=== PATIENT | female | born 1940 | race Two or more races ===

== ENCOUNTER 2016-11-23 12:56 | Inpatient (IN) | payer MEDICARE, BC ==
[~2016-11-23 12:56] MED LIST: /ESOM40CA OR; /WARF3TA PO; ALLO100T PO; ALLO15TA PO; ALLOPOW4 XX; BENA25CA2 PO; CALC1CAP31 PO; CARD120T3 OR; CIPR-250 PO; COLA50CA3 PO; DEMA20TA PO; GABA-282 PO; K-TA10TA PO; LOPR50TA OR; METO100T PO; METR1TAB66 PO; OMEP40CA2 PO; PACE400T PO; POTA10TA16 PO; PRED20TA OR; ROCA0.5C PO; RYTH150T OR; TORS20TA2 PO; TYLE325T5 PO; ZYRT10CA PO; [UNRECOGNIZED DRUG - OTHER] PO; pradaxa OR
--- NOTE | 2016-11-23 14:15 | REP ---
CT Head without contrast HISTORY: Infarction COMPARISON: None Areas of decreased attenuation are present in the periventricular white matter. This represents small-vessel ischemic disease. There is no intraparenchymal hemorrhage, acute infarct, mass or midline shift. The ventricular system and cortical sulci as well as subarachnoid space in the posterior fossa are dilated consistent with mild volume loss. There is no extra cerebral collection. There is no fracture. The visualized sinuses are clear. IMPRESSION: 1. Small vessel ischemic disease. 2. Mild volume loss. Signed by Narciso Virgen MD 11/23/2016 02:06 P
--- NOTE | 2016-11-23 14:24 | REP ---
CT CERVICAL SPINE WITHOUT CONTRAST: HISTORY: Fall. There is no acute fracture or subluxation. Disc bulges are present at the C2-3 and C3-4 levels. Disc bulges with associated osteophyte formation are present at the C4-5 through C6-7 levels. There is minimal narrowing of the spinal canal. Uncinate process and/or facet hypertrophy are present at the C2-3 through C7-T1 levels. These findings produce minimal to moderate narrowing of the neural foramina. The C3-4 through C6-7 intervertebral discs are decreased in height consistent with disc degeneration. IMPRESSION: 1. There is no acute fracture or subluxation. 2. There is cervical spondylosis at the C2-3 through C7-T1 levels. Signed by Narciso Virgen MD 11/23/2016 02:29 P
--- NOTE | 2016-11-23 14:25 | REP ---
Chest one-view HISTORY: Infarction Comparison: 12/03/2014 The lungs are clear. The cardiac silhouette is enlarged. The pulmonary vasculature is normal in appearance. A cardiac pacemaker is present. Impression: No acute disease. Signed by Narciso Virgen MD 11/23/2016 02:17 P
[2016-11-23] MEDS ORDERED: GABA-282 PO (14:30)
[2016-11-23] MEDS ORDERED: TRAM50TA2 PO (14:30)
[2016-11-23] MEDS ORDERED: TORS20TA2 PO (14:30)
[2016-11-23] MEDS ORDERED: CALC1CAP31 PO (14:30)
[2016-11-23] MEDS ORDERED: METO25TA4 PO (14:30)
[2016-11-23] MEDS ORDERED: AMIO200T PO (14:30)
[2016-11-23] MEDS ORDERED: XARE15TA PO (14:30)
[2016-11-23] MEDS ORDERED: DIPH25CA PO (14:30)
[2016-11-23] MEDS ORDERED: FAMO40TA3 PO (14:30)
[2016-11-23] MEDS ORDERED: ZYLO300T4 PO (14:30)
[2016-11-23] MEDS ORDERED: POTA10CA PO (14:30)
[2016-11-23] MEDS ORDERED: ATOR1TAB21 PO (14:30)
[2016-11-23 14:31] LABS: INR 1.6
[2016-11-23] MEDS ORDERED: ONDA4TAB6 PO (14:31)
[2016-11-23 14:40] LABS: BASO % 0.7 % (0.0-1.0); EOS # 0.2 K/mm3 (0.0-0.50); EOS % 2.2 % (0.0-3.0); LARGE UNSTAINED CELL # 0.3 K/mm3 (0.0-0.4); LARGE UNSTAINED CELL % 3.8 % (0.0-4.0); LYMPH # 1.5 K/mm3 (1.5-4.5); LYMPH % 20.1 % (24.0-44.0); MEAN CORPUSCULAR HEMOGLOBIN 33.4 pg (27.0-33.0); MEAN CORPUSCULAR VOLUME 104.6 fl (80.0-96.0); MONO # 0.5 K/mm3 (0.0-0.8); MONO % 6.3 % (0.0-5.0); PLATELET COUNT, AUTOMATED 197 k/mm3 (150-450); RED CELL DISTRIBUTION WIDTH 16.2 % (11.5-14.5); WHITE BLOOD COUNT 7.4 K/mm3 (4.0-10.0)
[2016-11-23 14:58] LABS: ALBUMIN 3.2 GM/DL (3.2-5.2); ALBUMIN/GLOBULIN RATIO 1.03 (1.00-1.93); BILIRUBIN,DIRECT 0.3 MG/DL (0.0-0.2); BILIRUBIN,TOTAL 0.8 MG/DL (0.2-1.0); CALCIUM LEVEL 8.1 MG/DL (8.8-10.2); CREATININE FOR GFR 3.73 MG/DL (0.55-1.02); FREE T4 1.49 NG/DL (0.76-1.46); GLOMERULAR FILTRATION RATE 12.5 (>39); POTASSIUM SERUM 4.7 MEQ/L (3.5-5.1); TOTAL PROTEIN 6.3 GM/DL (6.4-8.2)
[2016-11-23] MEDS ORDERED: NS 1,000 ML IV ONE (15:15)
[2016-11-23] MEDS ORDERED: ACETAMINOPHEN 650 MG SUPP PR PRN (16:45)
[2016-11-23] MEDS ORDERED: ONDANSETRON 4MG/2ML VIAL (J2405) IV PRN (16:45)
[2016-11-23] MEDS ORDERED: NS 1,000 ML IV SCH (17:00)
[2016-11-23 19:00] VITALS: BP 157/67
--- NOTE | 2016-11-23 19:11 | HPEPDOC ---
Medical History and Physical Date of Admission Nov 23, 2016 at 16:39 History and Physical HISTORY AND PHYSICAL Date of admission: 11/23/2016 PCP: Not local Chief complaint: Not talking or moving HPI: 76-year-old female with hypertension, GERD, A. fib, gout, hyperlipidemia, morbid obesity status post gastric bypass in 2010, A. fib, chronic kidney disease stage IV who is brought in by her family for her not being able to talk or move. The patient was vacationing up here with her and adult daughters, and has not been feeling well since Friday. On Friday, she had nausea and vomiting, and even fell. However, her states that he immediately caught her, and he denies any injury and is confident that she did not hit her head. On Friday and Friday she continued to have episodes of vomiting and even went to the emergency department down in [place] on Friday. At the time, the family states that she was alert and interactive, and walking with her walker, which is baseline. She received IV fluids and Zofran in the emergency department, and was discharged home. The family states that she has had episodes this week where she sleeps for almost 16 hours a day. They also report that sometimes after she vomits, she will seem very "out of it " for several hours and has even had episodes of forgetting things. On Friday, they state that she seemed like her normal self and was able to eat and acted okay. She went to bed last night, but when she woke up at 7 AM this morning, they noticed that she couldn't really talk or move. The let her go back to sleep, but they awoke her several hours later, and when she was no better, they then drove her into the emergency department. The states that last night, he did notice her rolling over and moving around, but when he said something to her about her having difficulty sleeping, she did not verbally reply. The daughters report that this morning she had evidently had an episode of bowel incontinence, but she has no prior history of seizure, and she did not have any witnessed seizure-like activity. The patient herself is unable to participate in this interview, so this documentation is derived from interview with the and daughters, as well as the prior medical record. Past medical history: Hypertension, GERD, A. fib, gout, hyperlipidemia, morbid obesity status post gastric bypass in 2010, A. yaniv, chronic kidney disease stage IV Past surgical history: Gastric bypass, pacemaker, cholecystectomy, back surgery Family history: Diabetes mellitus, coronary artery disease, CVA Social history: The patient resides with her . She is currently vacationing up here. She quit smoking tobacco approximately 40-50 years ago, and is not known to use any drugs or alcohol. Allergies: No known drug allergies Review of systems: The patient is unable to participate in a complete review of symptoms, however, her family is able to tell me that in the last week she has had nausea, vomiting , fatigue, and episodes where she appears "out of it" Home meds: See below Physical exam: Vital signs: Vital Sign - Last 24 Hours 11/23/16 11/23/16 11/23/16 11/23/16 13:15 13:56 14:00 14:15 Pulse 66 59 60 Resp 16 B/P (MAP) 145/66 (92) 154/62 (92) 151/65 (93) 173/72 (105) Pulse Ox 99 99 96 11/23/16 11/23/16 11/23/16 11/23/16 14:23 14:30 14:45 15:00 Temp 97.0 Pulse 59 59 60 B/P (MAP) 156/68 (97) 125/61 (82) 112/47 (68) Pulse Ox 97 96 97 11/23/16 11/23/16 11/23/16 11/23/16 15:15 15:30 15:45 16:00 Pulse 60 60 59 60 B/P (MAP) 105/55 (72) 108/58 (75) 123/61 (81) 134/62 (86) Pulse Ox 97 97 97 98 11/23/16 11/23/16 11/23/16 11/23/16 16:15 16:30 16:45 17:00 Pulse 59 60 59 59 B/P (MAP) 147/66 (93) 150/66 (94) 151/65 (93) 124/58 (80) Pulse Ox 99 98 98 96 11/23/16 11/23/16 11/23/16 11/23/16 17:15 17:30 17:45 18:00 Pulse 59 59 59 59 B/P (MAP) 123/58 (79) 117/56 (76) 125/57 (79) 145/63 (90) Pulse Ox 97 96 98 98 11/23/16 11/23/16 11/23/16 18:15 18:30 18:45 Pulse 60 59 59 B/P (MAP) 149/61 (90) 149/67 (94) 144/63 (90) Pulse Ox 97 98 98 Gen.: no acute distress, lying in bed, appears to be sleeping but opens eyes to verbal stimulus of name Eyes: Extraocular movements intact, normal sclera ENT: Moist mucous membranes Cardiovascular: RRR, no murmurs rubs or gallops Lungs: clear to auscultation bilaterally, no rales, rhonchi, or wheeze Abdomen: Soft, NT/ND, normal BS Musculoskeletal: patient is not able to hold limbs against gravity; when I lift them, they fall back to the bed Extremities: No peripheral edema Neuro: alert and oriented to name, able to follow command to stick out her tongue but not to squeeze my hand; when I ask her to move each extremity, she is able to wiggle the distal end but no other movement, withdraws to pain in all extremities and even verbalizes "ow" Psych: tearful at times Labs and radiology: See below Sodium 149 BUN 63, creatinine 3.73 Lactate 2.5 Ammonia 113 Alkaline phosphatase 156 Troponin negative TSH and free T4 unremarkable EKG shows a paced rhythm CT of the head and CT of the cervical spine show only spondylosis at C2-3 and C7 -T1 Chest x-ray and treated for acute findings Wet read of the CT of the abdomen and pelvis showed no acute findings but did notice bilateral renal stones and diverticulosis, final read pending Assessment and plan: 76-year-old female with hypertension, GERD, A. fib, gout, hyperlipidemia, morbid obesity status post gastric bypass in 2010, A. fib, chronic kidney disease stage IV who is brought in by her family for her not being able to talk or move. 1. Encephalopathy: At this time, etiology is unclear, but there is certainly concern for acute CVA. The patient has no lateralizing symptoms, but she is hardly talking at all. CT of the head is unremarkable, but we will order MRI and MRA of the head and neck. We will monitor her in the ICU with neuro checks, telemetry, and we'll also order an echocardiogram. At this time, I am concerned that she is not safe to swallow, so she will be nothing by mouth with gentle IV fluids and we will get PT, OT and speech therapy for her. We will also check an EEG to rule out seizure. There may also be a component of metabolic encephalopathy, as the patient does appear to have a mild acute on chronic kidney disease, as well as some hypernatremia. There is no evidence of infection at this time as the patient is afebrile with a normal white count, but we will check blood and urine cultures. An initial troponin is also negative and her EKG is paced, but we will continue to trend troponins. Pending results of this workup, and clinical course, the patient may benefit from a neurology consult in the near future. 2. Hypernatremia: The patient's sodium is 149. I suspect that this is hypovolemic in nature as the patient has been having vomiting for the past week. We will hydrate her gently with D5 half-normal and follow serial sodiums. 3. Acute on chronic kidney disease stage IV: Family states that her GFR at baseline is right around 15, and they note that her creatinine in the emergency department on Friday was 3.3, however, they're unsure of her baseline creatinine. At this time, her BUN is 63 and her creatinine is 3.7. We will hydrate her gently and monitor her BUN and creatinine. Holding home torsemide and also hold home Rocaltrol as patient is nothing by mouth. 4. Hypertension: Hold home beta amari while patient is nothing by mouth. 5. GERD: Hold home H2 amari while patient is nothing by mouth. 6. A. fib: The patient is currently paced. We'll be holding her home amiodarone , beta amari, and Xarelto while she is nothing by mouth. 7. Gout: Hold home allopurinol while nothing by mouth. 8. Hyperlipidemia: Hold home statin while nothing by mouth. DVT prophylaxis: Heparin Dispo: admit as an inpatient to the ICU on the service of Dr. Eliza Jernigan CODE STATUS: The daughters tell me that they are her legal healthcare proxies. Both the daughters and the feel pretty confident that she had previously signed a DNR/DNI. At this time, they believe that she should be DNR/ DNI in an effort to honor her wishes. They also told me that they would be getting in contact with the daughter's , who is at home, and should be able to produce a copy of the legal healthcare proxy, as well as a copy of the patient's DNR/DNI. Vital Signs Vital Signs Date Time Temp Pulse Resp B/P (MAP) Pulse Ox O2 Delivery O2 Flow Rate FiO2 11/23/16 18:45 59 144/63 (90) 98 11/23/16 14:23 97.0 11/23/16 13:15 16 Laboratory Data Labs 24H Laboratory Tests 2 11/23/16 13:40: White Blood Count 7.4, Red Blood Count 4.07, Hemoglobin 13.6, Hematocrit 42.6, Mean Corpuscular Volume 104.6H, Mean Corpuscular Hemoglobin 33.4H, Mean Corpuscular Hemoglobin Concent 32.0, Red Cell Distribution Width 16.2H, Platelet Count 197, Neutrophils (%) (Auto) 67.0H, Lymphocytes (%) (Auto) 20.1L, Monocytes (%) (Auto) 6.3H, Eosinophils (%) (Auto) 2.2, Basophils (%) (Auto) 0.7 , Neutrophils # (Auto) 5.0, Lymphocytes # (Auto) 1.5, Monocytes # (Auto) 0.5, Eosinophils # (Auto) 0.2, Basophils # (Auto) 0.0, Large Unclassified Cells % 3.8 , Large Unclassified Cells # 0.3, Prothrombin Time 19.5H, Prothromb Time International Ratio 1.60, Activated Partial Thromboplast Time 36.5, Anion Gap 14 , Glomerular Filtration Rate 12.5L, Calcium Level 8.1L, Aspartate Amino Transf ( AST/SGOT) 29, Alanine Aminotransferase (ALT/SGPT) 38, Alkaline Phosphatase 156H , Total Bilirubin 0.8, Direct Bilirubin 0.3H, Total Creatine Kinase 38, Creatine Kinase MB 1.9, Creatine Kinase MB Relative Index 5.00H, Troponin I 0.02 , Total Protein 6.3L, Albumin 3.2, Albumin/Globulin Ratio 1.03, Amylase Level 38 , Lipase 235, Thyroid Stimulating Hormone (TSH) 1.480, Free Thyroxine 1.49H 11/23/16 13:41: Lactic Acid Level 2.5*H, Ammonia 113H 11/23/16 13:46: Bedside Glucose (Misc Panel) 122H 11/23/16 18:55: CBC/BMP Laboratory Tests 11/23/16 13:40 Red Blood Count 4.07, Mean Corpuscular Volume 104.6 H, Mean Corpuscular Hemoglobin 33.4 H, Mean Corpuscular Hemoglobin Concent 32.0, Red Cell Distribution Width 16.2 H, Neutrophils (%) (Auto) 67.0 H, Lymphocytes (%) (Auto ) 20.1 L, Monocytes (%) (Auto) 6.3 H, Eosinophils (%) (Auto) 2.2, Basophils (%) (Auto) 0.7, Neutrophils # (Auto) 5.0, Lymphocytes # (Auto) 1.5, Monocytes # ( Auto) 0.5, Eosinophils # (Auto) 0.2, Basophils # (Auto) 0.0 11/23/16 17:51 Microbiology Microbiology 11/23/16 Blood Culture, Received Pending 11/23/16 Blood Culture, Received Pending Home Medications Scheduled Allopurinol (Zyloprim) 300 Mg Tab, 300 MG PO DAILY Amiodarone HCl (Amiodarone HCl) 200 Mg Tab, 200 MG PO DAILY Atorvastatin Calcium (Atorvastatin Calcium) 20 Mg Tab, 20 MG PO DAILY Calcitriol (Calcitriol) 0.25 Mcg Cap, 0.25 MCG PO DAILY Famotidine (Famotidine) 40 Mg Tab, 40 MG PO DAILY Gabapentin (Gabapentin) 300 Mg Cap, 300 MG PO TID Metoprolol Tartrate (Metoprolol Tartrate) 25 Mg Tab, 25 MG PO BID Potassium Chloride (Klor-Con M10) 10 Meq Tabcr, 10 MEQ PO DAILY Rivaroxaban (Xarelto) 15 Mg Tab, 15 MG PO QPM Torsemide (Torsemide) 20 Mg Tab, 20 MG PO DAILY Scheduled PRN Diphenhydramine HCl (Diphenhydramine HCl) 25 Mg Cap, 25 MG PO Q12H PRN for ITCHING Ondansetron (Ondansetron Odt) 4 Mg Tab, 4 MG PO Q8H PRN for NAUSEA OR VOMITING Tramadol HCl (Tramadol HCl) 50 Mg Tab, 50 MG PO Q8H PRN for PAIN Allergies Coded Allergies: No Known Drug Allergy (Verified Allergy, Unknown, 12/04/14) JOAQUIM SOUSA Nov 23, 2016 19:11
[2016-11-23] MEDS ORDERED: D5W/0.45% SODIUM CHLORIDE 1,000 ML IV SCH (19:15)
[2016-11-23 20:00] VITALS: BP 156/69
[2016-11-23] MEDS: HEPARIN SOD (PORCINE) 5000 UNITS/ML VIAL SQ SCH (20:07)
[2016-11-23 22:00] VITALS: BP 104/47
[2016-11-24] VITALS (8 sets, daily range): BP systolic 103–156; BP diastolic 50–70
[2016-11-24 05:23] LABS: BASO % 0.6 % (0.0-1.0); EOS # 0.2 K/mm3 (0.0-0.50); EOS % 2.8 % (0.0-3.0); LARGE UNSTAINED CELL # 0.3 K/mm3 (0.0-0.4); LARGE UNSTAINED CELL % 4.3 % (0.0-4.0); LYMPH # 2.6 K/mm3 (1.5-4.5); MEAN CORPUSCULAR HEMOGLOBIN 33.4 pg (27.0-33.0); MEAN CORPUSCULAR HGB CONC 31.6 g/dl (32.0-36.5); MEAN CORPUSCULAR VOLUME 105.5 fl (80.0-96.0); MONO # 0.5 K/mm3 (0.0-0.8); MONO % 8.4 % (0.0-5.0); NEUTROPHILS # 2.8 K/mm3 (1.8-7.7); NEUTROPHILS % 45.9 % (36.0-66.0); PLATELET COUNT, AUTOMATED 176 k/mm3 (150-450); RED CELL DISTRIBUTION WIDTH 16.9 % (11.5-14.5); WHITE BLOOD COUNT 6.1 K/mm3 (4.0-10.0)
[2016-11-24 05:24] LABS: ADD MORPHOLOGY? YES; INR 1.27
[2016-11-24 05:47] LABS: ALBUMIN 2.5 GM/DL (3.2-5.2); ALBUMIN/GLOBULIN RATIO 0.96 (1.00-1.93); BILIRUBIN,TOTAL 0.8 MG/DL (0.2-1.0); CALCIUM LEVEL 7.8 MG/DL (8.8-10.2); CREATININE FOR GFR 3.2 MG/DL (0.55-1.02); MAGNESIUM LEVEL 2.2 MG/DL (1.8-2.4); POTASSIUM SERUM 4.1 MEQ/L (3.5-5.1); TOTAL PROTEIN 5.1 GM/DL (6.4-8.2)
[2016-11-24 06:28] LABS: ANISOCYTOSIS 1+
--- NOTE | 2016-11-24 07:32 | REP ---
CT ABDOMEN AND PELVIS WITHOUT CONTRAST: HISTORY: Fall. COMPARISON: 12/03/2014. The patient is status post cholecystectomy and stomach banding. Calcifications are present in the kidneys consistent with nephrolithiasis. Bilateral renal cysts are present. The largest on the right measures 8 cm. The largest on the left measures 5.2 cm. There is no hydronephrosis. The liver, pancreas, spleen and adrenal glands are normal in appearance. Prominent vessels are present adjacent to the spleen. There is no mass, adenopathy or free fluid. The visualized lungs are clear. The urinary bladder and uterus are normal in appearance. Diverticula are present in the descending and sigmoid colon. Degenerative change is present in the spine. IMPRESSION: 1. The patient is status post cholecystectomy and stomach banding. 2. Bilateral nephrolithiasis. 3. Bilateral renal cysts. 4. Diverticulosis. Signed by Narciso Virgen MD 11/24/2016 08:59 A
[2016-11-24] MEDS: D5W 1,000 ML IV SCH (08:17)
[2016-11-24] MEDS: HEPARIN SOD (PORCINE) 5000 UNITS/ML VIAL SQ SCH (08:17)
--- NOTE | 2016-11-24 08:36 | ECGEPIP ---
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
[2016-11-24] MEDS: METOPROLOL TART 25 MG TABLET PO SCH ×2 (09:00→20:47)
[2016-11-24] MEDS: cefTRIAXone SOD 1 GM in D5W MINI-BAG PLUS 50 ML IV SCH (09:16)
--- NOTE | 2016-11-24 10:13 | IPNPDOC ---
Subjective Date Seen The patient was seen on 11/24/16. Subjective Chief Complaint/HPI The patient is a 76-year-old female admitted with a reason for visit of AMS. Events since last encounter awake and alert this morning , knows her name , date or , where she is the name of the hospital can now give history about whats been going on at home. no fever or chills, feels weak , no chest pain or sob , no cough or phlegm , no diarrhea, did have few episodes of vomiting over the week, no dysuria or frequency of urination. Objective Physical Examination General Exam: Positive: Alert, Cooperative, No Acute Distress Eye Exam: Positive: PERRLA, Conjunctiva & lids normal, EOMI, Negative: Sclera icteric ENT Exam: Positive: Atraumatic, Mucous membr. moist/pink, Pharynx Normal Neck Exam: Positive: Supple, Negative: JVD, thyromegaly Chest Exam: Positive: Clear to auscultation, Normal air movement Heart Exam: Positive: Rate Normal, Regular Rhythm, Normal S1, Normal S2, Negative: Murmurs, Rubs Telemetry: Positive: No significant arrhythmia Abdomen Exam: Positive: Normal bowel sounds, Soft, Negative: Tenderness, Hepatospenomegaly Extremity Exam: Positive: Normal pulses, Negative: Clubbing, Cyanosis, Edema Assessment /Plan Problems (1) UTI (urinary tract infection) Status: Acute Problem Text: will start on ceftriaxone , await urine culture. (2) Acute metabolic encephalopathy Status: Acute Response to Treatment: Improving Problem Text: due to urinary tract infection clearing up (3) Hypernatremia Status: Acute Problem Text: due to poor intake , being on diuratics and vomiting deficit in free water will continue Dex iv. (4) CKD (chronic kidney disease), stage IV Status: Chronic (5) A-fib Status: Chronic Problem Text: will restart amiodarone, eliquis and metoprolol. (6) GERD (gastroesophageal reflux disease) Status: Chronic (7) Gout Status: Chronic (8) Hypertension Status: Chronic Problem Text: Now bp lowish . will get echo (9) Hyperlipidemia Status: Chronic (10) Pacemaker Status: Chronic Plan/VTE VTE Prophylaxis Ordered?: Yes VS, I&O, 24H, Fishbone Vital Signs/I&O Vital Signs Date Time Temp Pulse Resp B/P (MAP) Pulse Ox O2 Delivery O2 Flow Rate FiO2 11/24/16 06:00 60 111/53 (72) 87 Room Air 11/24/16 04:00 97.2 18 I&O- Last 24 Hours up to 6 AM 11/24/16 06:00 Intake Total 1600 ml Output Total 300 ml Balance 1300 ml Laboratory Data 24H LABS Laboratory Tests 2 11/23/16 13:40: White Blood Count 7.4, Red Blood Count 4.07, Hemoglobin 13.6, Hematocrit 42.6, Mean Corpuscular Volume 104.6H, Mean Corpuscular Hemoglobin 33.4H, Mean Corpuscular Hemoglobin Concent 32.0, Red Cell Distribution Width 16.2H, Platelet Count 197, Neutrophils (%) (Auto) 67.0H, Lymphocytes (%) (Auto) 20.1L, Monocytes (%) (Auto) 6.3H, Eosinophils (%) (Auto) 2.2, Basophils (%) (Auto) 0.7 , Neutrophils # (Auto) 5.0, Lymphocytes # (Auto) 1.5, Monocytes # (Auto) 0.5, Eosinophils # (Auto) 0.2, Basophils # (Auto) 0.0, Large Unclassified Cells % 3.8 , Large Unclassified Cells # 0.3, Prothrombin Time 19.5H, Prothromb Time International Ratio 1.60, Activated Partial Thromboplast Time 36.5, Anion Gap 14 , Glomerular Filtration Rate 12.5L, Calcium Level 8.1L, Aspartate Amino Transf ( AST/SGOT) 29, Alanine Aminotransferase (ALT/SGPT) 38, Alkaline Phosphatase 156H , Total Bilirubin 0.8, Direct Bilirubin 0.3H, Total Creatine Kinase 38, Creatine Kinase MB 1.9, Creatine Kinase MB Relative Index 5.00H, Troponin I 0.02 , Total Protein 6.3L, Albumin 3.2, Albumin/Globulin Ratio 1.03, Amylase Level 38 , Lipase 235, Thyroid Stimulating Hormone (TSH) 1.480, Free Thyroxine 1.49H 11/23/16 13:41: Lactic Acid Level 2.5*H, Ammonia 113H 11/23/16 13:46: Bedside Glucose (Misc Panel) 122H 11/23/16 18:55: Total Creatine Kinase 31, Creatine Kinase MB 2.0, Creatine Kinase MB Relative Index 6.45H, Troponin I 0.03#, Lactic Acid Followup at 4 Hours 1.3 11/24/16 04:02: White Blood Count 6.1, Red Blood Count 3.34L, Hemoglobin 11.2#L, Hematocrit 35.2L, Mean Corpuscular Volume 105.5H, Mean Corpuscular Hemoglobin 33.4H, Mean Corpuscular Hemoglobin Concent 31.6L, Red Cell Distribution Width 16.9H, Platelet Count 176, Neutrophils (%) (Auto) 45.9, Lymphocytes (%) (Auto) 38.0, Monocytes (%) (Auto) 8.4H, Eosinophils (%) (Auto) 2.8, Basophils (%) (Auto) 0.6 , Neutrophils # (Auto) 2.8, Lymphocytes # (Auto) 2.6, Monocytes # (Auto) 0.5, Eosinophils # (Auto) 0.2, Basophils # (Auto) 0.0, Large Unclassified Cells % 4.3H, Large Unclassified Cells # 0.3, Platelet Estimate NORMAL, Anisocytosis 1+ , Macrocytosis 2+, Prothrombin Time 16.2H, Prothromb Time International Ratio 1.27, Anion Gap 12, Glomerular Filtration Rate 15.0L, Blood Urea Nitrogen 58H, Creatinine 3.20H, Sodium Level 152H, Potassium Level 4.1, Chloride Level 117H, Carbon Dioxide Level 23, Calcium Level 7.8L, Aspartate Amino Transf (AST/SGOT) 23, Alanine Aminotransferase (ALT/SGPT) 28, Total Creatine Kinase 24L, Alkaline Phosphatase 121H, Total Bilirubin 0.8, Total Protein 5.1L, Albumin 2.5#L, Magnesium Level 2.2, Creatine Kinase MB 1.4, Creatine Kinase MB Relative Index 5.83H, Troponin I 0.03, Albumin/Globulin Ratio 0.96L 11/24/16 06:00: Urine Appearance TURBIDH, Urine Color AVINASH, Urine pH 5.0, Urine Specific [place] 1.012, Urine Protein 1+H, Urine Glucose (UA) NEGATIVE, Urine Ketones NEGATIVE, Urine Urobilinogen 0.2, Urine Bilirubin NEGATIVE, Urine Leukocyte Esterase 3+H, Urine Blood 1+H, Urine Nitrite NEGATIVE, Urine WBC (Auto) TNTCH, Urine RBC (Auto) 32H, Urine Hyaline Casts (Auto) 0, Urine Bacteria (Auto) 3+H, Urine Squamous Epithelial Cells 6, Urine Mucus (Auto) SMALL, Urine Sperm (Auto) CBC/BMP Laboratory Tests 11/23/16 13:40 Red Blood Count 4.07, Mean Corpuscular Volume 104.6 H, Mean Corpuscular Hemoglobin 33.4 H, Mean Corpuscular Hemoglobin Concent 32.0, Red Cell Distribution Width 16.2 H, Neutrophils (%) (Auto) 67.0 H, Lymphocytes (%) (Auto ) 20.1 L, Monocytes (%) (Auto) 6.3 H, Eosinophils (%) (Auto) 2.2, Basophils (%) (Auto) 0.7, Neutrophils # (Auto) 5.0, Lymphocytes # (Auto) 1.5, Monocytes # ( Auto) 0.5, Eosinophils # (Auto) 0.2, Basophils # (Auto) 0.0 11/23/16 17:51 11/23/16 22:38 11/24/16 04:02 Red Blood Count 3.34 L, Mean Corpuscular Volume 105.5 H, Mean Corpuscular Hemoglobin 33.4 H, Mean Corpuscular Hemoglobin Concent 31.6 L, Red Cell Distribution Width 16.9 H, Neutrophils (%) (Auto) 45.9, Lymphocytes (%) (Auto) 38.0, Monocytes (%) (Auto) 8.4 H, Eosinophils (%) (Auto) 2.8, Basophils (%) ( Auto) 0.6, Neutrophils # (Auto) 2.8, Lymphocytes # (Auto) 2.6, Monocytes # (Auto ) 0.5, Eosinophils # (Auto) 0.2, Basophils # (Auto) 0.0, Calcium Level 7.8 L, Aspartate Amino Transf (AST/SGOT) 23, Alanine Aminotransferase (ALT/SGPT) 28, Total Creatine Kinase 24 L, Alkaline Phosphatase 121 H, Total Bilirubin 0.8, Total Protein 5.1 L, Albumin 2.5 #L Microbiology Microbiology 11/23/16 Blood Culture, Received Pending 11/23/16 Blood Culture, Received Pending 11/23/16 Urine Culture, Received Pending JASMINE RAPHAEL MD Nov 24, 2016 10:13
[2016-11-24] MEDS: AMIODARONE 200 MG TAB (PACERONE) PO SCH (11:10)
[2016-11-24] MEDS: RIVAROXABAN 15 MG TAB (XARELTO) PO SCH (20:47)
[2016-11-25] VITALS: BP 131/62
[2016-11-25] MEDS: D5W 1,000 ML IV SCH ×2 (01:50→16:49)
[2016-11-25 04:00] VITALS: BP 129/60
[2016-11-25 04:40] LABS: BASO % 0.7 % (0.0-1.0); EOS # 0.2 K/mm3 (0.0-0.50); EOS % 3.5 % (0.0-3.0); LARGE UNSTAINED CELL # 0.3 K/mm3 (0.0-0.4); LARGE UNSTAINED CELL % 4.5 % (0.0-4.0); LYMPH # 2.7 K/mm3 (1.5-4.5); LYMPH % 41.3 % (24.0-44.0); MEAN CORPUSCULAR HEMOGLOBIN 33.4 pg (27.0-33.0); MEAN CORPUSCULAR HGB CONC 31.4 g/dl (32.0-36.5); MEAN CORPUSCULAR VOLUME 106.2 fl (80.0-96.0); MONO # 0.4 K/mm3 (0.0-0.8); MONO % 6.7 % (0.0-5.0); NEUTROPHILS # 2.5 K/mm3 (1.8-7.7); NEUTROPHILS % 43.3 % (36.0-66.0); PLATELET COUNT, AUTOMATED 149 k/mm3 (150-450); RED CELL DISTRIBUTION WIDTH 16.7 % (11.5-14.5); WHITE BLOOD COUNT 5.8 K/mm3 (4.0-10.0)
[2016-11-25 04:41] LABS: ADD MORPHOLOGY? YES
[2016-11-25 04:44] LABS: INR 1.69
[2016-11-25 04:58] LABS: ALBUMIN 2.4 GM/DL (3.2-5.2); ALBUMIN/GLOBULIN RATIO 0.89 (1.00-1.93); BILIRUBIN,TOTAL 0.5 MG/DL (0.2-1.0); CALCIUM LEVEL 7.4 MG/DL (8.8-10.2); CREATININE FOR GFR 2.83 MG/DL (0.55-1.02); GLOMERULAR FILTRATION RATE 17.2 (>39); MAGNESIUM LEVEL 2.1 MG/DL (1.8-2.4); POTASSIUM SERUM 4.1 MEQ/L (3.5-5.1); TOTAL PROTEIN 5.1 GM/DL (6.4-8.2)
[2016-11-25 05:16] LABS: ANISOCYTOSIS 1+; HYPOCHROMASIA 1+
[2016-11-25 08:00] VITALS: BP 140/66
[2016-11-25] MEDS: METOPROLOL TART 25 MG TABLET PO SCH ×2 (09:00→20:09)
--- NOTE | 2016-11-25 09:10 | ECHO ---
DATE OF STUDY: 11/24/2016 REFERRING PHYSICIAN: Dr. Lizett Vu INDICATION: Transient cerebral ischemia, unspecified. HEIGHT: 62 inches. WEIGHT: 68 kilograms. 2D MEASUREMENTS: proximal ascending aorta3.1 cm Left atrium: 3.0 cm Ventricular septum: 1.21 cm Posterior wall: 1.00 cm Left ventricle diastole: 4.3 cm Left ventricle systole: 2.6 cm LVOT: 2.0 cm Right ventricle: 4.4 cm Inferior vena cava: 1.8 cm DOPPLER MEASUREMENTS: Aortic valve velocity: 182 cm/s LVOT velocity: 83.5 cm/s LVOT VTI: 20.4 cm Mitral E velocity: 110 cm/s Mitral A velocity: 60.4 cm/s Moderate-severe tricuspid regurgitation. Estimated right ventricle systolic pressure: 57 mmHg assuming a right atrial pressure of 15 mmHg MITRAL ANNULAR TISSUE DOPPLER: E prime septal: 5.9 cm/s DESCRIPTION: Rhythm was atrial pace. This was a moderately technically difficult echocardiogram. No pericardial effusion. This was a 2D, M-mode, color flow Doppler, and pulse wave Doppler examination and included mitral annular tissue Doppler. CONCLUSIONS: 1. Moderately-severe elevation of estimated right ventricle systolic pressure (57 mmHg) mild right ventricle dilatation. Normal right ventricle systolic function. Normal appearing tricuspid leaflets. Moderately-severe tricuspid regurgitation. 2. Normal left ventricle internal dimensions and wall thickness. Normal regional left ventricle (LV) wall motion and wall thickening. Normal LV systolic functioning. Left ventricular ejection fraction (LVEF) 60% by visual estimate. Normal LV diastolic function. 3. Moderate aortic valve sclerosis of a three-cusp aortic valve. No aortic stenosis or regurgitation. 4. Mild mitral annular calcification. Very mild mitral regurgitation. 5. Presence of a cardioarterial and right ventricle pacemaker leads. [facility]
[2016-11-25] MEDS: AMIODARONE 200 MG TAB (PACERONE) PO SCH (09:25)
[2016-11-25] MEDS: cefTRIAXone SOD 1 GM in D5W MINI-BAG PLUS 50 ML IV SCH (09:26)
--- NOTE | 2016-11-25 10:57 | IPNPDOC ---
Subjective Date Seen The patient was seen on 11/25/16. Subjective Chief Complaint/HPI The patient is a 76-year-old female admitted with a reason for visit of AMS. Events since last encounter doing much better, ate full breakfast, sitting up in chair, no fever or chills, no chest pain or sob , no abdominal pain , nausea or vomiting or diarrhea, does complain of weakness which is getting better. Objective Physical Examination General Exam: Positive: Alert, Cooperative, No Acute Distress Eye Exam: Positive: PERRLA, Conjunctiva & lids normal, EOMI, Negative: Sclera icteric ENT Exam: Positive: Atraumatic, Mucous membr. moist/pink, Pharynx Normal Neck Exam: Positive: Supple, Negative: JVD, thyromegaly Chest Exam: Positive: Clear to auscultation, Normal air movement Heart Exam: Positive: Rate Normal, Regular Rhythm, Normal S1, Normal S2, Negative: Murmurs, Rubs Telemetry: Positive: No significant arrhythmia Abdomen Exam: Positive: Normal bowel sounds, Soft, Negative: Tenderness, Hepatospenomegaly Extremity Exam: Positive: Normal pulses, Negative: Clubbing, Cyanosis, Edema Assessment /Plan Problems (1) UTI (urinary tract infection) Status: Acute Problem Text: will continue ceftriaxone , urine culture contaminated. (2) Acute metabolic encephalopathy Status: Acute Response to Treatment: Improving Problem Text: due to urinary tract infection clearing up (3) Hyperammonemia Status: Acute Problem Text: in the setting of uti (4) Hypernatremia Status: Acute Problem Text: due to poor intake , being on diuretics and vomiting deficit in free water will continue Dex iv. monitor closely for fluid overload (5) CKD (chronic kidney disease), stage IV Status: Chronic (6) A-fib Status: Chronic Problem Text: will restart amiodarone, eliquis and metoprolol. (7) GERD (gastroesophageal reflux disease) Status: Chronic (8) Gout Status: Chronic (9) Hypertension Status: Chronic Problem Text: Now bp lowish . will get echo (10) Hyperlipidemia Status: Chronic (11) Pacemaker Status: Chronic (12) Pulmonary hypertension Status: Chronic Problem Text: echo shows normal systolic and diastolic function but has moderate pulmonary hypertension. Plan/VTE VTE Prophylaxis Ordered?: Yes VS, I&O, 24H, Fishbone Vital Signs/I&O Vital Signs Date Time Temp Pulse Resp B/P (MAP) Pulse Ox O2 Delivery O2 Flow Rate FiO2 11/25/16 09:00 99 115/60 11/25/16 04:00 97.3 16 97 Room Air I&O- Last 24 Hours up to 6 AM 11/25/16 06:00 Intake Total 2610 ml Output Total 0 ml Balance 2610 ml Laboratory Data 24H LABS Laboratory Tests 2 11/24/16 12:01: Total Creatine Kinase 33, Creatine Kinase MB 1.5, Creatine Kinase MB Relative Index 4.54H, Troponin I 0.02# 11/25/16 04:26: White Blood Count 5.8, Red Blood Count 3.13L, Hemoglobin 10.5L, Hematocrit 33.3L , Mean Corpuscular Volume 106.2H, Mean Corpuscular Hemoglobin 33.4H, Mean Corpuscular Hemoglobin Concent 31.4L, Red Cell Distribution Width 16.7H, Platelet Count 149L, Neutrophils (%) (Auto) 43.3, Lymphocytes (%) (Auto) 41.3, Monocytes (%) (Auto) 6.7H, Eosinophils (%) (Auto) 3.5H, Basophils (%) (Auto) 0.7 , Neutrophils # (Auto) 2.5, Lymphocytes # (Auto) 2.7, Monocytes # (Auto) 0.4, Eosinophils # (Auto) 0.2, Basophils # (Auto) 0.0, Large Unclassified Cells % 4.5H, Large Unclassified Cells # 0.3, Platelet Estimate NORMAL, Hypochromasia 1+ , Anisocytosis 1+, Macrocytosis 2+, Prothrombin Time 20.4H, Prothromb Time International Ratio 1.69, Anion Gap 11, Glomerular Filtration Rate 17.2L, Blood Urea Nitrogen 52H, Creatinine 2.83H, Sodium Level 149H, Potassium Level 4.1, Chloride Level 116H, Carbon Dioxide Level 22, Calcium Level 7.4L, Aspartate Amino Transf (AST/SGOT) 21, Alanine Aminotransferase (ALT/SGPT) 27, Alkaline Phosphatase 115, Total Bilirubin 0.5, Total Protein 5.1L, Albumin 2.4L, Magnesium Level 2.1, Albumin/Globulin Ratio 0.89L CBC/BMP Laboratory Tests 11/24/16 12:01 11/24/16 16:45 11/24/16 22:30 11/25/16 04:26 Red Blood Count 3.13 L, Mean Corpuscular Volume 106.2 H, Mean Corpuscular Hemoglobin 33.4 H, Mean Corpuscular Hemoglobin Concent 31.4 L, Red Cell Distribution Width 16.7 H, Neutrophils (%) (Auto) 43.3, Lymphocytes (%) (Auto) 41.3, Monocytes (%) (Auto) 6.7 H, Eosinophils (%) (Auto) 3.5 H, Basophils (%) ( Auto) 0.7, Neutrophils # (Auto) 2.5, Lymphocytes # (Auto) 2.7, Monocytes # (Auto ) 0.4, Eosinophils # (Auto) 0.2, Basophils # (Auto) 0.0, Calcium Level 7.4 L, Aspartate Amino Transf (AST/SGOT) 21, Alanine Aminotransferase (ALT/SGPT) 27, Alkaline Phosphatase 115, Total Bilirubin 0.5, Total Protein 5.1 L, Albumin 2.4 L Microbiology Microbiology 11/23/16 Blood Culture - Preliminary, Resulted No growth after 24 hours . All specim... 11/23/16 Blood Culture - Preliminary, Resulted No growth after 24 hours . All specim... 11/23/16 Urine Culture - Final, Complete JASMINE RAPHAEL MD Nov 25, 2016 10:57
[2016-11-25 12:00] VITALS: BP 96/47
[2016-11-25 15:18] VITALS: BP 117/51
[2016-11-25] MEDS: RIVAROXABAN 15 MG TAB (XARELTO) PO SCH (20:09)
[2016-11-25 22:00] VITALS: BP 135/64
[2016-11-26 06:00] VITALS: BP 152/68
[2016-11-26 06:51] LABS: INR 2.02
[2016-11-26 06:53] LABS: BASO % 0.7 % (0.0-1.0); EOS # 0.2 K/mm3 (0.0-0.50); EOS % 2.9 % (0.0-3.0); LARGE UNSTAINED CELL # 0.3 K/mm3 (0.0-0.4); LARGE UNSTAINED CELL % 5.5 % (0.0-4.0); LYMPH # 1.9 K/mm3 (1.5-4.5); LYMPH % 35.8 % (24.0-44.0); MEAN CORPUSCULAR HGB CONC 32.3 g/dl (32.0-36.5); MEAN CORPUSCULAR VOLUME 105.2 fl (80.0-96.0); MONO # 0.4 K/mm3 (0.0-0.8); MONO % 7.3 % (0.0-5.0); NEUTROPHILS # 2.5 K/mm3 (1.8-7.7); NEUTROPHILS % 47.8 % (36.0-66.0); PLATELET COUNT, AUTOMATED 143 k/mm3 (150-450); WHITE BLOOD COUNT 5.3 K/mm3 (4.0-10.0)
[2016-11-26 07:07] LABS: ALBUMIN 2.5 GM/DL (3.2-5.2); ALBUMIN/GLOBULIN RATIO 0.89 (1.00-1.93); BILIRUBIN,TOTAL 0.5 MG/DL (0.2-1.0); CALCIUM LEVEL 7.5 MG/DL (8.8-10.2); CREATININE FOR GFR 2.21 MG/DL (0.55-1.02); GLOMERULAR FILTRATION RATE 22.9 (>39); POTASSIUM SERUM 4.1 MEQ/L (3.5-5.1); TOTAL PROTEIN 5.3 GM/DL (6.4-8.2)
[2016-11-26] MEDS: cefTRIAXone SOD 1 GM in D5W MINI-BAG PLUS 50 ML IV SCH (08:01)
[2016-11-26] MEDS: AMIODARONE 200 MG TAB (PACERONE) PO SCH (08:02)
[2016-11-26] MEDS: METOPROLOL TART 25 MG TABLET PO SCH ×2 (08:05→21:05)
[2016-11-26] MEDS: FAMOTIDINE 20 MG TAB PO SCH (09:20)
[2016-11-26] MEDS: ATORVASTATIN 20 MG TAB PO SCH (09:20)
[2016-11-26] MEDS: ALLOPURINOL 300 MG TAB PO SCH (09:20)
[2016-11-26] MEDS: CALCITRIOL 0.25 MCG CAP (S0169) PO SCH (09:20)
[2016-11-26 14:00] VITALS: BP 142/63
--- NOTE | 2016-11-26 14:27 | IPNPDOC ---
Date Seen The patient was seen on 11/26/16. Progress Note Hospitalist Progress Note Subjective: The patient states that she is doing much better and is hoping to go home soon Objective: Physical Exam: Vitals: Vital Sign - Last 24 Hours 11/25/16 11/25/16 11/25/16 11/25/16 15:18 16:25 20:09 22:00 Temp 98.2 97.3 Pulse 61 60 60 Resp 18 18 B/P (MAP) 117/51 (73) 130/63 135/64 (87) Pulse Ox 97 96 O2 Delivery Room Air Room Air Room Air 11/26/16 11/26/16 06:00 08:05 Temp 97.4 Pulse 60 65 Resp 18 B/P (MAP) 152/68 (96) 137/65 Pulse Ox 97 O2 Delivery Room Air General: Awake, alert, no acute distress HEENT: Normocephalic, atraumatic, extraocular movements intact, moist mucous membranes CV: Regular rate and rhythm Lungs: Clear to auscultation bilaterally Abd: Soft, Nontender, nondistended Extremities: No edema Neuro: Alert and oriented 3, normal speech, intact finger to nose, no facial droop, no arm drift, 5 out of 5 strength in all extremities, no focal deficits Psych: Normal mood and affect Labs and Imaging: Laboratory Tests 11/26/16 06:24 Red Blood Count 3.14 L, Mean Corpuscular Volume 105.2 H, Mean Corpuscular Hemoglobin 34.0 H, Mean Corpuscular Hemoglobin Concent 32.3, Red Cell Distribution Width 16.0 H, Neutrophils (%) (Auto) 47.8, Lymphocytes (%) (Auto) 35.8, Monocytes (%) (Auto) 7.3 H, Eosinophils (%) (Auto) 2.9, Basophils (%) ( Auto) 0.7, Neutrophils # (Auto) 2.5, Lymphocytes # (Auto) 1.9, Monocytes # (Auto ) 0.4, Eosinophils # (Auto) 0.2, Basophils # (Auto) 0.0, Calcium Level 7.5 L, Aspartate Amino Transf (AST/SGOT) 22, Alanine Aminotransferase (ALT/SGPT) 26, Alkaline Phosphatase 120 H, Total Bilirubin 0.5, Total Protein 5.3 L, Albumin 2.5 L Assessment and Plan: 76-year-old female with hypertension, GERD, A. fib, gout, hyperlipidemia, morbid obesity status post gastric bypass in 2010, chronic kidney disease stage IV who was initially brought in by her family for not being able to talk or move. There was initially some concern for a stroke, but she has now been found to have a UTI, and with proper treatment of the UTI, she has drastically improved. 1. Encephalopathy: Initially, given her aphasia and lack of movement, there was concern that this was a stroke. Unfortunately, secondary to her pacemaker, she was not able to get any MRIs. CT of her head was unremarkable. She has since been found to have a UTI, and since being treated for the UTI, her encephalopathy has entirely resolved. It does appear that this is metabolic in nature, secondary to her infection, as well as acute on chronic kidney disease. Her encephalopathy was not secondary to a stroke. 2. Sepsis secondary to UTI: Urine culture is read as being contaminated, however , her UA was turbid with 1+ blood, 3+ leuk esterase, too numerous to count WBCs , and 3+ bacteria. She was initially encephalopathic, and had an acute kidney injury. She has improved with treatment for UTI. At this point, she is status post 3 doses of Rocephin, so we will switch her to oral Keflex. Given the complicated nature of her infection, she will need antibiotic therapy for at least 10 days total. Blood cultures are negative. 3. Acute on chronic kidney disease stage IV: The patient's baseline creatinine is unknown, however, her BUN/creatinine upon admission was 63/3.73 and is now 41 /2.21. We will stop her IV fluids at this time, continue to monitor her kidney function. Restart home Rocaltrol 4. Hypernatremia: The patient's sodium bonita as high as 152. Suspect likely secondary to not eating and drinking and subsequent dehydration while she was encephalopathic. Her sodium has now improved to 146. We will stop her IV fluids and continue to monitor. 5. Hypertension: Continue home beta amari 6. GERD: Restart home H2 amari 7. A. fib: The patient is currently paced. Continue home amiodarone, beta amari, and Xarelto 8. Gout: Restart home allopurinol 9. Hyperlipidemia: Restart home statin 10. Pulmonary hypertension: This is a new diagnosis, discovered on echocardiogram during the initial workup for her encephalopathy. The patient will need to follow-up with her rotoprinter and continue to treat underlying issues such as her A. fib. DVT prophylaxis: Xarelto Dispo: hopefully home in the next several days, when the patient is cleared by physical therapy VS, I&O, 24H, Josye Vital Signs/I&O Vital Signs Date Time Temp Pulse Resp B/P (MAP) Pulse Ox O2 Delivery O2 Flow Rate FiO2 11/26/16 08:05 65 137/65 11/26/16 06:00 97.4 18 97 Room Air I&O- Last 24 Hours up to 6 AM 11/26/16 06:00 Intake Total 2386 ml Output Total 925 ml Balance 1461 ml Laboratory Data 24H LABS Laboratory Tests 2 11/26/16 06:24: White Blood Count 5.3, Red Blood Count 3.14L, Hemoglobin 10.7L, Hematocrit 33.0L , Mean Corpuscular Volume 105.2H, Mean Corpuscular Hemoglobin 34.0H, Mean Corpuscular Hemoglobin Concent 32.3, Red Cell Distribution Width 16.0H, Platelet Count 143L, Neutrophils (%) (Auto) 47.8, Lymphocytes (%) (Auto) 35.8, Monocytes (%) (Auto) 7.3H, Eosinophils (%) (Auto) 2.9, Basophils (%) (Auto) 0.7 , Neutrophils # (Auto) 2.5, Lymphocytes # (Auto) 1.9, Monocytes # (Auto) 0.4, Eosinophils # (Auto) 0.2, Basophils # (Auto) 0.0, Large Unclassified Cells % 5.5H, Large Unclassified Cells # 0.3, Prothrombin Time 23.6H, Prothromb Time International Ratio 2.02, Anion Gap 10, Glomerular Filtration Rate 22.9L, Blood Urea Nitrogen 41H, Creatinine 2.21H, Sodium Level 146H, Potassium Level 4.1, Chloride Level 114H, Carbon Dioxide Level 22, Calcium Level 7.5L, Aspartate Amino Transf (AST/SGOT) 22, Alanine Aminotransferase (ALT/SGPT) 26, Alkaline Phosphatase 120H, Total Bilirubin 0.5, Total Protein 5.3L, Albumin 2.5L, Magnesium Level 2.0, Ammonia 30, Albumin/Globulin Ratio 0.89L CBC/BMP Laboratory Tests 11/26/16 06:24 Red Blood Count 3.14 L, Mean Corpuscular Volume 105.2 H, Mean Corpuscular Hemoglobin 34.0 H, Mean Corpuscular Hemoglobin Concent 32.3, Red Cell Distribution Width 16.0 H, Neutrophils (%) (Auto) 47.8, Lymphocytes (%) (Auto) 35.8, Monocytes (%) (Auto) 7.3 H, Eosinophils (%) (Auto) 2.9, Basophils (%) ( Auto) 0.7, Neutrophils # (Auto) 2.5, Lymphocytes # (Auto) 1.9, Monocytes # (Auto ) 0.4, Eosinophils # (Auto) 0.2, Basophils # (Auto) 0.0, Calcium Level 7.5 L, Aspartate Amino Transf (AST/SGOT) 22, Alanine Aminotransferase (ALT/SGPT) 26, Alkaline Phosphatase 120 H, Total Bilirubin 0.5, Total Protein 5.3 L, Albumin 2.5 L Microbiology Microbiology 11/23/16 Blood Culture - Preliminary, Resulted No Growth after 48 hours. All Specime... 11/23/16 Blood Culture - Preliminary, Resulted No Growth after 48 hours. All Specime... 11/23/16 Urine Culture - Final, Complete JOAQUIM SOUSA Nov 26, 2016 14:27
[2016-11-26] MEDS: diphenhydrAMINE 25 MG CAP PO PRN ×2 (16:45→22:47)
[2016-11-26] MEDS: RIVAROXABAN 15 MG TAB (XARELTO) PO SCH (21:00)
[2016-11-26 21:05] VITALS: BP 141/65
[2016-11-26 21:17] VITALS: BP 141/65
[2016-11-27 06:00] VITALS: BP 154/66
[2016-11-27] MEDS: diphenhydrAMINE 25 MG CAP PO PRN (06:24)
[2016-11-27 07:03] LABS: BASO % 0.8 % (0.0-1.0); EOS # 0.2 K/mm3 (0.0-0.50); EOS % 3.6 % (0.0-3.0); LARGE UNSTAINED CELL # 0.2 K/mm3 (0.0-0.4); LARGE UNSTAINED CELL % 2.5 % (0.0-4.0); LYMPH # 2.2 K/mm3 (1.5-4.5); LYMPH % 32.2 % (24.0-44.0); MEAN CORPUSCULAR HEMOGLOBIN 33.8 pg (27.0-33.0); MEAN CORPUSCULAR HGB CONC 32.2 g/dl (32.0-36.5); MEAN CORPUSCULAR VOLUME 104.9 fl (80.0-96.0); MONO # 0.4 K/mm3 (0.0-0.8); MONO % 6.8 % (0.0-5.0); NEUTROPHILS # 3.4 K/mm3 (1.8-7.7); NEUTROPHILS % 54.1 % (36.0-66.0); PLATELET COUNT, AUTOMATED 151 k/mm3 (150-450); RED CELL DISTRIBUTION WIDTH 16.4 % (11.5-14.5); WHITE BLOOD COUNT 6.2 K/mm3 (4.0-10.0)
[2016-11-27 07:04] LABS: INR 2.09
[2016-11-27 07:24] LABS: ALBUMIN 3.1 GM/DL (3.2-5.2); ALBUMIN/GLOBULIN RATIO 1.19 (1.00-1.93); BILIRUBIN,TOTAL 0.7 MG/DL (0.2-1.0); CALCIUM LEVEL 8.7 MG/DL (8.8-10.2); CREATININE FOR GFR 2.18 MG/DL (0.55-1.02); GLOMERULAR FILTRATION RATE 23.3 (>39); MAGNESIUM LEVEL 2.2 MG/DL (1.8-2.4); POTASSIUM SERUM 4.5 MEQ/L (3.5-5.1); TOTAL PROTEIN 5.7 GM/DL (6.4-8.2)
[2016-11-27] MEDS: ATORVASTATIN 20 MG TAB PO SCH (08:20)
[2016-11-27] MEDS: AMIODARONE 200 MG TAB (PACERONE) PO SCH (08:20)
[2016-11-27] MEDS: METOPROLOL TART 25 MG TABLET PO SCH (08:20)
[2016-11-27] MEDS: FAMOTIDINE 20 MG TAB PO SCH (08:21)
[2016-11-27] MEDS: CALCITRIOL 0.25 MCG CAP (S0169) PO SCH (08:21)
[2016-11-27] MEDS: ALLOPURINOL 300 MG TAB PO SCH (08:21)
[2016-11-27] MEDS ORDERED: CEPHALEXIN 500 MG CAP PO SCH (09:00)
[2016-11-27] MEDS ORDERED: CEPH500C PO (10:38)
--- NOTE | 2016-11-27 14:32 | DS.PDOC ---
Discharge Summary General Date of Admission Nov 23, 2016 at 16:39 Date of Discharge 11/27/2016 Discharge Summary DISCHARGE SUMMARY DATE OF ADMISSION: 11/23/2016 DATE OF DISCHARGE: 11/27/2016 PRIMARY CARE PHYSICIAN: Not local DISCHARGE DIAGNOS(E)S: Acute metabolic encephalopathy Sepsis secondary to Urinary tract infection Hypernatremia Acute on chronic kidney disease HPI & HOSPITAL COURSE: 76-year-old female with hypertension, GERD, A. fib, gout, hyperlipidemia, morbid obesity status post gastric bypass in 2010, chronic kidney disease stage IV who was initially brought in by her family for not being able to talk or move. There was initially some concern for a stroke, but she has now been found to have a UTI, and with proper treatment of the UTI, she has drastically improved. 1. Encephalopathy: Initially, given her aphasia and lack of movement, there was concern that this was a stroke. Unfortunately, secondary to her pacemaker, she was not able to get any MRIs. CT of her head was unremarkable. She has since been found to have a UTI, and since being treated for the UTI, her encephalopathy has entirely resolved. It does appear that this is metabolic in nature, secondary to her infection, as well as acute on chronic kidney disease. Her encephalopathy was not secondary to a stroke. 2. Sepsis secondary to UTI: Urine culture is read as being contaminated, however , her UA was turbid with 1+ blood, 3+ leuk esterase, too numerous to count WBCs , and 3+ bacteria. She was initially encephalopathic, and had an acute kidney injury. She has improved with treatment for UTI. At this point, she is status post 3 doses of Rocephin, and has been switched to oral Keflex. Given the complicated nature of her infection, she will need antibiotic therapy for at least 10 days total. Blood cultures are negative. 3. Acute on chronic kidney disease stage IV: The patient's baseline creatinine is unknown, however, her BUN/creatinine upon admission was 63/3.73 and is now 31 /2.18. Continue home Rocaltrol 4. Hypernatremia: The patient's sodium bonita as high as 152. Suspect likely secondary to not eating and drinking and subsequent dehydration while she was encephalopathic. Her sodium has now improved to 144. 5. Hypertension: Continue home beta amari 6. GERD: Continue home H2 amari 7. A. fib: The patient is currently paced. Continue home amiodarone, beta amari, and Xarelto 8. Gout: Continue home allopurinol 9. Hyperlipidemia: Continue home statin 10. Pulmonary hypertension: This is a new diagnosis, discovered on echocardiogram during the initial workup for her encephalopathy. The patient will need to follow-up with her manager civil and continue to treat underlying issues such as her A. fib. DVT prophylaxis: Xarelto PHYSICAL EXAMINATION ON DISCHARGE: VITAL SIGNS: Vital Signs Date Time Temp Pulse Resp B/P (MAP) Pulse Ox O2 Delivery O2 Flow Rate FiO2 11/27/16 06:00 97.8 60 16 154/66 (95) 99 Room Air General: Awake, alert, no acute distress HEENT: Normocephalic, atraumatic, extraocular movements intact, moist mucous membranes CV: Regular rate and rhythm Lungs: Clear to auscultation bilaterally Abd: Soft, Nontender, nondistended Extremities: No edema Neuro: Alert and oriented 3, normal speech, intact finger to nose, no facial droop, no arm drift, 5 out of 5 strength in all extremities, no focal deficits Psych: Normal mood and affect DISPOSITION: Home with outpatient physical therapy DISCHARGE INSTRUCTIONS: The patient does not reside locally, and is currently up here vacationing on [facility] for at least the next month. The hospitalist operations administrative assistant is working to coordinate a follow-up appointment with a PCP in the local area. After the patient returns home, she should follow-up with her primary physicians there. If symptoms return, or if you experience worsening of your symptoms, please call your doctor or return to the emergency department. ITEMS THAT NEED OUTPATIENT FOLLOWUP: Monitoring of kidney function Patient was seen and examined by me on the day of discharge, and I spent a total time of greater than 30 minutes on this discharge. Vital Signs/I&Os Vital Signs Date Time Temp Pulse Resp B/P (MAP) Pulse Ox O2 Delivery O2 Flow Rate FiO2 11/27/16 06:00 97.8 60 16 154/66 (95) 99 Room Air I&O- Last 24 Hours up to 6 AM 11/27/16 05:59 Intake Total 2260 ml Output Total 0 ml Balance 2260 ml Laboratory Data Labs 24H Laboratory Tests 2 11/27/16 06:36: White Blood Count 6.2, Red Blood Count 3.30L, Hemoglobin 11.1L, Hematocrit 34.6L , Mean Corpuscular Volume 104.9H, Mean Corpuscular Hemoglobin 33.8H, Mean Corpuscular Hemoglobin Concent 32.2, Red Cell Distribution Width 16.4H, Platelet Count 151, Neutrophils (%) (Auto) 54.1, Lymphocytes (%) (Auto) 32.2, Monocytes (%) (Auto) 6.8H, Eosinophils (%) (Auto) 3.6H, Basophils (%) (Auto) 0.8 , Neutrophils # (Auto) 3.4, Lymphocytes # (Auto) 2.2, Monocytes # (Auto) 0.4, Eosinophils # (Auto) 0.2, Basophils # (Auto) 0.0, Large Unclassified Cells % 2.5 , Large Unclassified Cells # 0.2, Prothrombin Time 24.2H, Prothromb Time International Ratio 2.09, Anion Gap 8, Glomerular Filtration Rate 23.3L, Blood Urea Nitrogen 31H, Creatinine 2.18H, Sodium Level 144, Potassium Level 4.5, Chloride Level 113H, Carbon Dioxide Level 23, Calcium Level 8.7#L, Aspartate Amino Transf (AST/SGOT) 31, Alanine Aminotransferase (ALT/SGPT) 35, Alkaline Phosphatase 149H, Total Bilirubin 0.7, Total Protein 5.7L, Albumin 3.1#L, Magnesium Level 2.2, Albumin/Globulin Ratio 1.19 CBC/BMP Laboratory Tests 11/27/16 06:36 Red Blood Count 3.30 L, Mean Corpuscular Volume 104.9 H, Mean Corpuscular Hemoglobin 33.8 H, Mean Corpuscular Hemoglobin Concent 32.2, Red Cell Distribution Width 16.4 H, Neutrophils (%) (Auto) 54.1, Lymphocytes (%) (Auto) 32.2, Monocytes (%) (Auto) 6.8 H, Eosinophils (%) (Auto) 3.6 H, Basophils (%) ( Auto) 0.8, Neutrophils # (Auto) 3.4, Lymphocytes # (Auto) 2.2, Monocytes # (Auto ) 0.4, Eosinophils # (Auto) 0.2, Basophils # (Auto) 0.0, Calcium Level 8.7 #L, Aspartate Amino Transf (AST/SGOT) 31, Alanine Aminotransferase (ALT/SGPT) 35, Alkaline Phosphatase 149 H, Total Bilirubin 0.7, Total Protein 5.7 L, Albumin 3.1 #L Microbiology Microbiology 8/26/17 Blood Culture - Preliminary, Resulted No Growth after 72 hours. All specime... 11/23/16 Blood Culture - Preliminary, Resulted No Growth after 72 hours. All specime... 11/23/16 Urine Culture - Final, Complete Discharge Medications Scheduled Allopurinol (Zyloprim) 300 Mg Tab, 300 MG PO DAILY, (Reported) Amiodarone HCl (Amiodarone HCl) 200 Mg Tab, 200 MG PO DAILY, (Reported) Atorvastatin Calcium (Atorvastatin Calcium) 20 Mg Tab, 20 MG PO DAILY, (Reported ) Calcitriol (Calcitriol) 0.25 Mcg Cap, 0.25 MCG PO DAILY, (Reported) Cephalexin Monohydrate (Cephalexin) 500 Mg Cap, 500 MG PO BID Famotidine (Famotidine) 40 Mg Tab, 40 MG PO DAILY, (Reported) Gabapentin (Gabapentin) 300 Mg Cap, 300 MG PO TID, (Reported) Metoprolol Tartrate (Metoprolol Tartrate) 25 Mg Tab, 25 MG PO BID, (Reported) Potassium Chloride (Klor-Con M10) 10 Meq Tabcr, 10 MEQ PO DAILY, (Reported) Rivaroxaban (Xarelto) 15 Mg Tab, 15 MG PO QPM, (Reported) Torsemide (Torsemide) 20 Mg Tab, 20 MG PO DAILY, (Reported) Scheduled PRN Diphenhydramine HCl (Diphenhydramine HCl) 25 Mg Cap, 25 MG PO Q12H PRN for ITCHING, (Reported) Ondansetron (Ondansetron Odt) 4 Mg Tab, 4 MG PO Q8H PRN for NAUSEA OR VOMITING, (Reported) Tramadol HCl (Tramadol HCl) 50 Mg Tab, 50 MG PO Q8H PRN for PAIN, (Reported) Allergies Coded Allergies: No Known Drug Allergy (Verified Allergy, Unknown, 12/04/14) JOAQUIM SOUSA Nov 27, 2016 14:32
== END 2016-11-27 13:04 | disposition home or self-care (01) | DRG 871 ==
LOC: M ED 12:56 → M ED INP 16:39 → M ICU 19:18 → M MSPAV 11-25 15:15
PROVIDERS: ADMIT Hospitalist; ATTEND Hospitalist
DX: A41.9 Sepsis, unspecified organism (principal); G93.41 Metabolic encephalopathy; N39.0 Urinary tract infection, site not specified; N18.4 Chronic kidney disease, stage 4 (severe); E87.0 Hyperosmolality and hypernatremia; E72.20 Disorder of urea cycle metabolism, unspecified; N17.9 Acute kidney failure, unspecified; I12.9 Hypertensive chronic kidney disease with stage 1 through stage 4 chronic kidney disease, or unspecified chronic kidney disease; K21.9 Gastro-esophageal reflux disease without esophagitis; I48.91 Unspecified atrial fibrillation; I27.2 Other secondary pulmonary hypertension; E78.5 Hyperlipidemia, unspecified; Z98.84 Bariatric surgery status; Z95.0 Presence of cardiac pacemaker; Z79.01 Long term (current) use of anticoagulants; Z79.899 Other long term (current) drug therapy; Z90.49 Acquired absence of other specified parts of digestive tract; Z83.3 Family history of diabetes mellitus; Z82.49 Family history of ischemic heart disease and other diseases of the circulatory system; Z82.0 Family history of epilepsy and other diseases of the nervous system; Z87.891 Personal history of nicotine dependence

== ENCOUNTER 2016-12-10 08:55 | Inpatient (IN) | payer MEDICARE, BC ==
[~2016-12-10] VITALS: Ht 157.5 cm; Wt 71.1 kg
[~2016-12-10 08:55] MED LIST changes: +AMIO200T PO; +ATOR1TAB21 PO; +CEPH500C PO; +DIPH25CA PO; +FAMO40TA3 PO; +METO25TA4 PO; +ONDA4TAB6 PO; +POTA10CA PO; +TRAM50TA2 PO; +XARE15TA PO; +ZYLO300T4 PO
[2016-12-10 09:56] LABS: VENOUS BASE EXCESS 0.2 (-2.0-2.0); VENOUS O2 SATURATION 87.4 % (60.0-80.0); VENOUS PARTIAL PRESSURE CO2 45.7 mmHg (38.0-50.0); VENOUS PARTIAL PRESSURE O2 57.8 mmHg (30.0-50.0); VENOUS STANDARD HCO3 24.5 MEQ/L; VENOUS TOTAL CO2 27.2 MEQ/L (24.0-28.0)
[2016-12-10 09:58] LABS: ADD MANUAL DIFFER YES; MEAN CORPUSCULAR HEMOGLOBIN 33.2 pg (27.0-33.0); MEAN CORPUSCULAR HGB CONC 31.3 g/dl (32.0-36.5); MEAN CORPUSCULAR VOLUME 106.2 fl (80.0-96.0); PLATELET COUNT, AUTOMATED 184 k/mm3 (150-450); RED CELL DISTRIBUTION WIDTH 16.5 % (11.5-14.5); WHITE BLOOD COUNT 6.2 K/mm3 (4.0-10.0)
[2016-12-10 10:15] LABS: ALBUMIN 3.2 GM/DL (3.2-5.2); ALBUMIN/GLOBULIN RATIO 1.23 (1.00-1.93); BILIRUBIN,DIRECT 0.4 MG/DL (0.0-0.2); BILIRUBIN,TOTAL 0.9 MG/DL (0.2-1.0); CALCIUM LEVEL 8.7 MG/DL (8.8-10.2); CREATININE FOR GFR 3.71 MG/DL (0.55-1.02); GLOMERULAR FILTRATION RATE 12.6 (>39); POTASSIUM SERUM 4.3 MEQ/L (3.5-5.1); TOTAL PROTEIN 5.8 GM/DL (6.4-8.2)
--- NOTE | 2016-12-10 10:26 | REP ---
Clinical: Altered mental status. Technique: Portable semiupright view. Comparison: 11/23/2016. Findings: Stable cardiomegaly and pacemaker along with atherosclerotic changes to the thoracic aorta again noted. Minimal linear atelectasis at the left base is suggested. Lung shah are otherwise well aerated and clear. Impression: Minimal left basilar atelectasis. Signed by Juan C Slade MD 12/10/2016 10:18 A
[2016-12-10 10:36] LABS: EOSINOPHILS 2 % (0-5)
[2016-12-10 10:37] LABS: ANISOCYTOSIS 1+
--- NOTE | 2016-12-10 11:02 | REP ---
CT BRAIN WITHOUT CONTRAST: 12/10/2016 CLINICAL HISTORY: Altered mental status. COMPARISON: 11/23/2016 CT brain. FINDINGS: Lateral ventricles are midline symmetric and without dilatation. Third and fourth ventricles also unremarkable. There is diffuse cerebral atrophy greatest in the temporal lobes and frontal lobes but mild to moderate throughout and unchanged for the past 2 weeks. Basal ganglia are symmetric and grossly intact. Some slight heterogeneous low attenuation white matter change bilaterally suggesting some small vessel white matter change. There is no vascular territory infarct, intracranial hemorrhage, mass or mass effect. Brainstem is unremarkable. Cerebellum shows mild atrophy and is unchanged. The basal cisterns are grossly intact. There are very heavy vascular calcifications in the bilateral carotid siphons. Mastoids and internal auditory canals are unremarkable. The sphenoid and ethmoid sinuses. Frontal sinuses did not developed. The orbits and contents grossly intact. That portion of calvarium included is normal. IMPRESSION: 1. Mild diffuse atrophy and small vessel ischemic white matter changes, stable. No acute infarct, hemorrhage, mass, mass effect or edema. 2. The sinuses and mastoids visible are unremarkable. 3. Vascular calcifications carotid siphons. Orbits and contents visible in part are unremarkable. There is no fracture or focal bone lesion of the skull base or calvarium. Signed by Hua Escalera MD 12/10/2016 04:12 P
[2016-12-10] MEDS ORDERED: NS 500 ML IV ONE (11:30)
[2016-12-10 16:57] LABS: TOTAL PROTEIN 5.8 GM/DL (6.4-8.2)
--- NOTE | 2016-12-10 17:22 | REP ---
Duplex carotid sonography: History: Confusional state. Findings: Antegrade flow was observed in both vertebral arteries. Right carotid: The right common carotid artery is unremarkable on two-dimensional scanning. There is mild mixed plaquing in the bulb and proximal ICA on two-dimensional scanning on the right side. Color flow and spectral Doppler interrogation are unremarkable. Velocity chart right carotid: Right CCA PSV 91 cm/S Right ICA PSV 63 EDV 15 Right ECA PSV 109 Right ICA/CCA ratio normal 0.7 Impression: 16-49% narrowing in the right ICA by Doppler velocity criteria. Left carotid: Left common carotid artery shows mild diffuse intimal thickening. There is mild mixed plaquing in the bulb and proximal ICA on the left side on two-dimensional scanning. Color flow and spectral Doppler interrogation are unremarkable on the left. Velocity chart left carotid: Left CCA PSV 86 cm/S Left ICA PSV 87 ESV 18 Left ECA PSV 89 Left ICA/CCA ratio normal 1.0. Impression: 16-49% category narrowing in the left ICA by Doppler velocity criteria. Signed by Shahzad Gardiner MD 12/10/2016 05:25 P
--- NOTE | 2016-12-10 18:05 | HPE ---
DATE OF ADMISSION: 12/10/2016 CHIEF COMPLAINT: Acute confusional state. HISTORY OF PRESENT ILLNESS: This is a 76-year-old white female with sudden onset of acute confusional state that lasted from 12/10/2016 from 5 p.m. to roughly 1 a.m. the next day. She normally retires to bed at roughly 9. The daughter reports that this began at dinnertime, when the patient did not feel hungry and then throughout the evening she was acutely confused. She had no obvious weakness. No paresthesia, visual changes, although she was off balance on her feet, not particularly leaning one way or another and without falls. Per the daughter, the patient was complaining that she had to urinate, but then she would sit on the toilet and not have to urinate. There was no seizure-type activity. No precedent trauma. The patient had been in for a similar mental status change from 11/23/2016-11/27/2016, wherein at that point it was felt to be secondary to toxic metabolic encephalopathy secondary to a urinary tract infection, for which the confusion resolved after treatment of her urinary tract infection (UTI), although specimens were contaminated and blood cultures were negative. MRI cannot be done because of her pacemaker. Her CT of the head without contrast from November 23 and today both show mild diffuse atrophy, small-vessel disease with no acute infarct, hemorrhage, mass, nor edema. She has had no documented history of cerebrovascular accident (CVA) nor seizure activity. Patient awoke this morning, and she states she was back to her baseline mental status. Daughter feels that she was slightly confused, but by the time she got to the emergency room (ER), she was normal mental status. PAST MEDICAL HISTORY: Hospitalization as listed above. Illnesses: 1. Chronic kidney disease, stage IV, baseline creatinine of 2.5. 2. Atrial fibrillation, chronic, on chronic Xarelto, renally dosed. 3. Congestive heart failure (CHF), chronic, secondary to diastolic dysfunction, 11/25/2016 transthoracic echocardiogram (TTE) with moderate to severe elevation in the right ventricular systolic pressure with mild right ventricular dilatation. Moderate severe tricuspid regurgitation (TR). Left ventricular ejection fraction (LVEF) 60%. 4. Gastroesophageal reflux disease (GERD). 5. Lumbar spondylosis with chronic radicular pain. 6. 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 7. Hyperlipidemia. 8. Gout. 9. Hypertension. 10. Hypertensive heart disease. MEDICATIONS: Per [employer] ([employer]), confirmed with patient: - allopurinol 300 mg by mouth daily - amiodarone 200 mg by mouth daily - atorvastatin 20 mg by mouth daily - calcitriol 0.25 by mouth daily - famotidine 40 mg by mouth daily - gabapentin 600 at bedtime - metoprolol 25 by mouth twice a day - potassium chloride 15 by mouth daily - Xarelto 15 mg by mouth daily - torsemide 20 mg by mouth daily REVIEW OF SYSTEMS: CONSTITUTIONAL: No weight loss. VISION: No diplopia, scotoma. ENT: No epistaxis. No hoarseness. CARDIOVASCULAR: No chest pain or palpitations. PULMONARY: No shortness of breath or wheeze. GASTROINTESTINAL: No odynophagia, melena, hematochezia. GENITOURINARY: No dysuria, hematuria. DERMATOLOGY: No rash. ENDOCRINE: No polydipsia, polyuria. NEUROLOGIC: No paresthesia, weakness. PHYSICAL EXAMINATION: 98.0, 60, 18, 145/70, 99% on room air. GENERAL: Patient was alert and oriented times three. No acute distress. Appearing her stated age. HEENT: Head is normocephalic, atraumatic. Ears: Tympanic membranes (TMs) normal bilaterally. Eyes: Clear conjunctivae. Nose without discharge. Throat: Clear oropharynx. NECK: Without adenopathy or thyromegaly. CARDIOVASCULAR: Irregularly irregular rhythm with controlled rate. No jugular venous distention (JVD). RESPIRATORY: Decreased breath sounds, bilateral. No rales. No rhonchi. ABDOMEN: Nontender, nondistended. Positive bowel sounds. No hepatosplenomegaly. EXTREMITIES: Without clubbing, cyanosis, and edema. NEUROLOGIC: Grossly nonfocal. INVESTIGATIONS: Show WBC 6.2, hemoglobin and hematocrit 11.8 and 37.6, MCV of 106, platelets 184, neutrophils 48%. Sodium 151, potassium 4.3, chloride 114, BUN 68, creatinine 3.7, calcium 8.7. AST/ALT of 28 and 35, alkaline phosphatase of 161. TSH of 2.5. Ammonia of 20. Urinalysis (UA) negative. CT of the head: No acute disease. Chest x-ray showed minimal left basal atelectasis. EKG from 0946 showed atrially paced rhythm. Diffuse repolarization abnormality. ASSESSMENT: A 76-year-old white female with recurrent acute confusional state. Differential diagnoses would be: 1. Toxic metabolic encephalopathy, although she has no acute findings of infection at this point, and actually neither did she at her last hospitalization, although she is mildly dehydrated with an acute kidney injury (MIK), stage I, probably secondary to dehydration from not taking dinner last evening. Also in the differential would be acute delirium secondary to dementia. 2. Stress reaction, given the patient has been under much more emotional stress lately because of familial stressors. 3. Atypical seizure activity. 4. Also cerebrovascular accident (CVA). PLAN: Neurologic: Admit the patient to [facility] ([facility]) medical/surgical bed. Monitor for any recurrent mental status change. Will check an electroencephalogram (EEG) to rule out epileptiform activity. Will check a carotid ultrasound to rule out any significant carotid stenosis. Urine blood cultures are pending, although she has no obvious signs of infection, and she has back to baseline mental status. Continue her home regimen except for holding her torsemide 20 by mouth daily and potassium chloride 15 by mouth daily given her mild acute kidney injury (MIK). Will follow her electrolytes closely. Check a urine drug screen and alcohol level, although she denies any illicit drug use or alcohol use. Given her macrocytosis, check B12, folate, and kappa/lambda ratio. Will consult physical therapy (PT)/occupational therapy (OT) to evaluate and treat.
[2016-12-10 18:50] VITALS: BP 137/65
[2016-12-10] MEDS: ATORVASTATIN 20 MG TAB PO SCH (19:06)
[2016-12-10] MEDS: RIVAROXABAN 15 MG TAB (XARELTO) PO SCH (19:06)
[2016-12-10] MEDS ORDERED: ONDANSETRON 4MG/2ML VIAL (J2405) IV PRN (19:30)
[2016-12-10] MEDS ORDERED: ALLOPURINOL 300 MG TAB PO SCH (21:00)
[2016-12-10] MEDS: GABAPENTIN 300 MG CAP PO SCH (21:20)
[2016-12-10] MEDS: METOPROLOL TART 25 MG TABLET PO SCH (21:20)
[2016-12-10] MEDS: diphenhydrAMINE 25 MG CAP PO PRN (21:22)
[2016-12-10 22:00] VITALS: BP 159/66
[2016-12-11 06:00] VITALS: BP 107/53
[2016-12-11 06:40] LABS: BASO % 0.8 % (0.0-1.0); EOS # 0.2 K/mm3 (0.0-0.50); EOS % 4.6 % (0.0-3.0); LARGE UNSTAINED CELL # 0.3 K/mm3 (0.0-0.4); LARGE UNSTAINED CELL % 4.5 % (0.0-4.0); LYMPH # 2.6 K/mm3 (1.5-4.5); LYMPH % 42.1 % (24.0-44.0); MEAN CORPUSCULAR HGB CONC 30.9 g/dl (32.0-36.5); MEAN CORPUSCULAR VOLUME 106.8 fl (80.0-96.0); MONO # 0.5 K/mm3 (0.0-0.8); NEUTROPHILS # 2.2 K/mm3 (1.8-7.7); PLATELET COUNT, AUTOMATED 174 k/mm3 (150-450); RED CELL DISTRIBUTION WIDTH 16.5 % (11.5-14.5); WHITE BLOOD COUNT 5.5 K/mm3 (4.0-10.0)
[2016-12-11 06:50] LABS: ALBUMIN 2.6 GM/DL (3.2-5.2); ALBUMIN/GLOBULIN RATIO 0.96 (1.00-1.93); BILIRUBIN,TOTAL 0.7 MG/DL (0.2-1.0); CALCIUM LEVEL 7.8 MG/DL (8.8-10.2); CREATININE FOR GFR 3.53 MG/DL (0.55-1.02); GLOMERULAR FILTRATION RATE 13.4 (>39); POTASSIUM SERUM 4.4 MEQ/L (3.5-5.1); TOTAL PROTEIN 5.3 GM/DL (6.4-8.2)
--- NOTE | 2016-12-11 08:10 | IPNPDOC ---
Subjective Date Seen The patient was seen on 12/11/16. Subjective Chief Complaint/HPI The patient is a 76-year-old female admitted with a reason for visit of Acute Confusional State. Constitutional: Denies: Chills, Fever ENT: Denies: Head Aches Pulmonary: Denies: Dyspnea, Cough Cardiovascular: Denies: Chest Pain Gastrointestinal: Denies: Nausea, Vomiting, Abdominal Pain Genitourinary: Denies: Dysuria Neurological: Denies: Weakness, Numbness, Change in speech, Confusion, Seizures Assessment /Plan Problems (1) Metabolic encephalopathy Status: Acute Response to Treatment: Improving Problem Text: Improving mentation. May be related to a combo of recent UTI and recent MIK, poor po intake due to family stressors. (2) Acute on chronic kidney failure Status: Acute Problem Text: CR. 3.58 today. Received IVF x 500 ml bolus x 1. Will give extra IV hydration today. Encouraged to take po fluids. (3) CKD (chronic kidney disease), stage IV Status: Chronic Problem Text: Unable to verbalize baseline Cr. [facility], lowest Cr: 2.5 (4) A-fib Permanent Comment: ECHO 11/24/16: 1. Moderately-severe elevation of estimated right ventricle systolic pressure (57 mmHg) mild right ventricle dilatation. Normal right ventricle systolic function. Normal appearing tricuspid leaflets. Moderately-severe tricuspid regurgitation. 2. Normal left ventricle internal dimensions and wall thickness. Normal regional left ventricle (LV) wall motion and wall thickening. Normal LV systolic functioning. Left ventricular ejection fraction (LVEF) 60% by visual estimate. Normal LV diastolic function. 3. Moderate aortic valve sclerosis of a three-cusp aortic valve. No aortic stenosis or regurgitation. 4. Mild mitral annular calcification. Very mild mitral regurgitation. 5. Presence of a cardioarterial and right ventricle pacemaker leads. Last Edited By: Iris Baker NP on Dec 11, 2016 07:47 Status: Chronic (5) GERD (gastroesophageal reflux disease) Status: Chronic (6) Gout Status: Chronic (7) Hypertension Status: Chronic (8) Hyperlipidemia Status: Chronic (9) Pacemaker Status: Chronic (10) Hypernatremia Status: Chronic Problem Text: KES: Na was persistently 149 during patient's last hospitalization; Na up a bit more now at 151-152. - Check urine osmolarity - Encourage PO water intake - I am hesitant to start IVF for this due to CHF; will obtain prior records from [place] to see if this is chronic. Plan/VTE VTE Prophylaxis Ordered?: Yes (Xarelto for Afib) Plan Family Medicine Attending Note: I saw and examined Ms. Mulligan this afternoon; I discussed her case with MALA Woods and I agree with her note as documented. Nurse states that patient's daughter Sharon told them that she has had many of these episodes over the last year, including some episodes of confusion in [place]. Sharon was not present when I examined the patient. The patient and her state that she has never had episodes of confusion prior to the recent 2 episodes. Sharon had requested that I call to speak with her, but the patient states she does not want me to call Sharon and does not want me to discuss her care with her unless the patient is present. Neuro exam is normal today; mental status exam is fairly normal though I am uncertain of the patient's baseline. She is unable to state the months of the year backwards or spell WORLD backwards. She is oriented to person, place, date , and situation. EEG was done today and results are pending, but history is not consistent with seizure. Carotid dopplers show <50% stenosis bilaterally. I will request records from her [employer] in [place] for more information. ( KES) VS, I&O, 24H, Fishbone Vital Signs/I&O Vital Signs Date Time Temp Pulse Resp B/P (MAP) Pulse Ox O2 Delivery O2 Flow Rate FiO2 12/11/16 06:00 97.6 51 16 107/53 (71) 98 Room Air I&O- Last 24 Hours up to 6 AM 12/11/16 06:00 Intake Total 1700 ml Output Total 0 ml Balance 1700 ml Laboratory Data 24H LABS Laboratory Tests 2 12/10/16 09:45: Neutrophils 48, Lymphocytes (Manual) 37, Monocytes (Manual) 7, Eosinophils ( Manual) 2, Metamyelocytes 1H, Atypical Lymphocytes 5, Platelet Estimate NORMAL, Anisocytosis 1+, Macrocytosis 2+, Blood Gas Bicarbonate Standard 24.5, Venous Blood pH 7.370, Venous Blood Partial Pressure CO2 45.7, Venous Blood Partial Pressure O2 57.8H, Venous Blood Total Carbon Dioxide 27.2, Venous Blood HCO3 25.8, Venous Blood Oxygen Saturation 87.4H, Venous Blood Base Excess 0.2, Anion Gap 10, Glomerular Filtration Rate 12.6L, Calcium Level 8.7L, Aspartate Amino Transf (AST/SGOT) 28, Alanine Aminotransferase (ALT/SGPT) 35, Alkaline Phosphatase 161H, Total Bilirubin 0.9, Direct Bilirubin 0.4H, Ammonia 20, Total Creatine Kinase 37, Creatine Kinase MB 1.8, Creatine Kinase MB Relative Index 4.86H, Troponin I 0.03, Total Protein 5.8L, Albumin 3.2, Albumin/Globulin Ratio 1.23, Vitamin B12 Level 312, Thyroid Stimulating Hormone (TSH) 2.510 12/10/16 09:59: Bedside Glucose (Misc Panel) 120H 12/10/16 10:07: Urine Appearance CLEAR, Urine Color YELLOW, Urine pH 5.0, Urine Specific [place] 1.010, Urine Protein NEGATIVE, Urine Glucose (UA) NEGATIVE, Urine Ketones NEGATIVE, Urine Urobilinogen 0.2, Urine Bilirubin NEGATIVE, Urine Leukocyte Esterase NEGATIVE, Urine Blood NEGATIVE, Urine Nitrite NEGATIVE, Urine WBC (Auto) 1, Urine RBC (Auto) 0, Urine Hyaline Casts (Auto) 0, Urine Bacteria (Auto) NEGATIVE, Urine Squamous Epithelial Cells 0, Urine Mucus (Auto) SMALL, Urine Sperm (Auto) 12/10/16 16:30: Total Protein (PEP) 5.8L 12/10/16 16:35: Erythrocyte Sedimentation Rate 34H, Lactic Acid Level 2.5*H, C-Reactive Protein , Quantitative < 0.30 12/10/16 20:58: Lactic Acid Followup at 4 Hours 1.6 12/11/16 05:42: White Blood Count 5.5, Red Blood Count 3.13L, Hemoglobin 10.3L, Hematocrit 33.4L , Mean Corpuscular Volume 106.8H, Mean Corpuscular Hemoglobin 33.0, Mean Corpuscular Hemoglobin Concent 30.9L, Red Cell Distribution Width 16.5H, Platelet Count 174, Neutrophils (%) (Auto) 39.0, Lymphocytes (%) (Auto) 42.1, Monocytes (%) (Auto) 9.0H, Eosinophils (%) (Auto) 4.6H, Basophils (%) (Auto) 0.8 , Neutrophils # (Auto) 2.2, Lymphocytes # (Auto) 2.6, Monocytes # (Auto) 0.5, Eosinophils # (Auto) 0.2, Basophils # (Auto) 0.0, Large Unclassified Cells % 4.5H, Large Unclassified Cells # 0.3, Anion Gap 9, Glomerular Filtration Rate 13.4L, Blood Urea Nitrogen 62H, Creatinine 3.53H, Sodium Level 152H, Potassium Level 4.4, Chloride Level 116H, Carbon Dioxide Level 27, Calcium Level 7.8L, Aspartate Amino Transf (AST/SGOT) 24, Alanine Aminotransferase (ALT/SGPT) 31, Alkaline Phosphatase 126H, Total Bilirubin 0.7, Total Protein 5.3L, Albumin 2.6L , Albumin/Globulin Ratio 0.96L CBC/BMP Laboratory Tests 12/10/16 09:45 Red Blood Count 3.54 L, Mean Corpuscular Volume 106.2 H, Mean Corpuscular Hemoglobin 33.2 H, Mean Corpuscular Hemoglobin Concent 31.3 L, Red Cell Distribution Width 16.5 H 12/10/16 16:35 12/11/16 05:42 Red Blood Count 3.13 L, Mean Corpuscular Volume 106.8 H, Mean Corpuscular Hemoglobin 33.0, Mean Corpuscular Hemoglobin Concent 30.9 L, Red Cell Distribution Width 16.5 H, Neutrophils (%) (Auto) 39.0, Lymphocytes (%) (Auto) 42.1, Monocytes (%) (Auto) 9.0 H, Eosinophils (%) (Auto) 4.6 H, Basophils (%) ( Auto) 0.8, Neutrophils # (Auto) 2.2, Lymphocytes # (Auto) 2.6, Monocytes # (Auto ) 0.5, Eosinophils # (Auto) 0.2, Basophils # (Auto) 0.0, Calcium Level 7.8 L, Aspartate Amino Transf (AST/SGOT) 24, Alanine Aminotransferase (ALT/SGPT) 31, Alkaline Phosphatase 126 H, Total Bilirubin 0.7, Total Protein 5.3 L, Albumin 2.6 L Microbiology Microbiology 12/10/16 Blood Culture, Received Pending 12/10/16 Blood Culture, Received Pending 12/10/16 Urine Culture, Received Pending Iris Baker Dec 11, 2016 08:10 HARRIET STEPHENSON MD Dec 11, 2016 15:18
[2016-12-11] MEDS: CALCITRIOL 0.25 MCG CAP (S0169) PO SCH (09:28)
[2016-12-11] MEDS: AMIODARONE 200 MG TAB (PACERONE) PO SCH (09:29)
[2016-12-11] MEDS: GABAPENTIN 300 MG CAP PO SCH ×2 (09:29→21:35)
[2016-12-11] MEDS: METOPROLOL TART 25 MG TABLET PO SCH ×2 (09:29→21:35)
[2016-12-11] MEDS: ATORVASTATIN 20 MG TAB PO SCH (09:29)
[2016-12-11] MEDS: FAMOTIDINE 20 MG TAB PO SCH (09:29)
[2016-12-11 10:00] VITALS: BP 133/61
[2016-12-11] MEDS ORDERED: NS 0.45% 1,000 ML IV ONE (10:15)
[2016-12-11 14:00] VITALS: BP 126/58
[2016-12-11] MEDS: RIVAROXABAN 15 MG TAB (XARELTO) PO SCH (17:55)
[2016-12-11 18:00] VITALS: BP 113/55
[2016-12-11] MEDS: diphenhydrAMINE 25 MG CAP PO PRN (21:35)
[2016-12-11 22:00] VITALS: BP 129/58
[2016-12-12 02:56] LABS: METHADONE URINE NEGATIVE (NEGATIVE)
[2016-12-12 04:00] VITALS: BP 109/55
[2016-12-12 06:00] VITALS: BP 105/54
--- NOTE | 2016-12-12 07:09 | ECGEPIP ---
Stationary ECG Study [facility] - ED Test Date: 2016-12-10 Pat Name: HENRY YANCEY Department: Room: - Gender: F Ready To [employer] Department Manager: ernesto : 1940 Requested By: Ministerio Soliman Order Number: [id number] Reading MD: Karly Larose Measurements Intervals Gallagher Rate: 60 P: 269 TX: 247 QRS: 41 QRSD: 102 T: 29 QT: 462 QTc: 462 Interpretive Statements ELECTRONIC ATRIAL PACEMAKER POSSIBLE RIGHT VENTRICULAR CONDUCTION DELAY NONSPECIFIC ST & T-WAVE ABNORMALITY ABNORMAL RHYTHM ECG SIMILAR 11/23/16 Electronically Signed On 12-12-2016 7:08:56 EDT by Karly Larose
[2016-12-12 08:14] LABS: ALBUMIN 2.6 GM/DL (3.2-5.2); ALBUMIN/GLOBULIN RATIO 0.93 (1.00-1.93); BILIRUBIN,TOTAL 0.8 MG/DL (0.2-1.0); CALCIUM LEVEL 8.2 MG/DL (8.8-10.2); GLOMERULAR FILTRATION RATE 16.1 (>39); POTASSIUM SERUM 4.5 MEQ/L (3.5-5.1); TOTAL PROTEIN 5.4 GM/DL (6.4-8.2)
[2016-12-12 08:16] LABS: EOS # 0.2 K/mm3 (0.0-0.50); EOS % 4.4 % (0.0-3.0); LARGE UNSTAINED CELL # 0.2 K/mm3 (0.0-0.4); LARGE UNSTAINED CELL % 4.2 % (0.0-4.0); LYMPH # 2.5 K/mm3 (1.5-4.5); MEAN CORPUSCULAR HEMOGLOBIN 33.2 pg (27.0-33.0); MONO # 0.4 K/mm3 (0.0-0.8); MONO % 8.1 % (0.0-5.0); NEUTROPHILS # 2.2 K/mm3 (1.8-7.7); NEUTROPHILS % 40.3 % (36.0-66.0); PLATELET COUNT, AUTOMATED 171 k/mm3 (150-450); RED CELL DISTRIBUTION WIDTH 16.3 % (11.5-14.5); WHITE BLOOD COUNT 5.5 K/mm3 (4.0-10.0)
[2016-12-12 08:26] LABS: ADD MORPHOLOGY? YES
[2016-12-12 09:00] LABS: ANISOCYTOSIS 2+
[2016-12-12] MEDS ORDERED: INFLUENZA VIRUS VACCINE HIGH DOSE 0.5 ML SYRINGE (90662) IM ONE (09:00)
[2016-12-12] MEDS ORDERED: PREVNAR 13 VACCINE SYRINGE (CPT CODE:90670) IM ONE (09:00)
[2016-12-12] MEDS: CALCITRIOL 0.25 MCG CAP (S0169) PO SCH (09:16)
[2016-12-12] MEDS: FAMOTIDINE 20 MG TAB PO SCH (09:16)
[2016-12-12] MEDS: ATORVASTATIN 20 MG TAB PO SCH (09:16)
[2016-12-12] MEDS: GABAPENTIN 300 MG CAP PO SCH (09:16)
[2016-12-12] MEDS: AMIODARONE 200 MG TAB (PACERONE) PO SCH (09:16)
[2016-12-12 09:26] VITALS: BP 130/63
[2016-12-12] MEDS: METOPROLOL TART 25 MG TABLET PO SCH (09:26)
[2016-12-12 09:28] LABS: ALBUMIN 3.43 GM/DL (3.29-5.55); ALBUMIN % 59.1 % (55.8-66.1)
--- NOTE | 2016-12-12 09:35 | EEG ---
DATE OF PROCEDURE: 12/11/2016 REFERRING PHYSICIAN: Dr. Sg Silveira DIAGNOSIS: Confusional state. EEG NUMBER: [id number] HISTORY: The patient is a 76-year-old woman who was admitted at [facility] due to confusion and altered mental status. She is currently taking amiodarone, metoprolol, Pepcid, Xarelto, gabapentin, Lipitor etc. TECHNICAL DESCRIPTION: This digital EEG was recorded by 21 scalp, ear and two EKG electrodes and was reviewed in bipolar and referential montages following reformatting in 10-20 international electrode placement system. INTERPRETATION The patient was noted to be in awake and drowsy states during this EEG. Resting awake background rhythm consisted of 3 - 4 Hz delta activity measuring 15 - 50 microvolts in amplitude, which was symmetric and unreactive. No clear sleep stages were identified. The patient remained drowsy and confused throughout this study. Hyperventilation could not be performed. Photic stimulation remained unremarkable. EKG revealed normal sinus rhythm. No epileptiform abnormalities were seen. No clinical or electrographic seizures were recorded. CONCLUSION This EEG in awake, drowsy, confused patient is abnormal with presence of generalized slowing and disorganization of background consistent with nonspecific diffuse cerebral dysfunction such as seen in encephalopathy due to multiple potential causes, including toxic, metabolic, medication related, infectious or multifocal structural abnormalities of brain. Clinical correlation is recommended.
[2016-12-12 10:00] VITALS: BP 111/65
[2016-12-12] MEDS ORDERED: VITA100072 PO (11:46)
--- NOTE | 2016-12-12 13:35 | DSES ---
DATE OF ADMISSION: 12/10/2016 DATE OF DISCHARGE: 12/12/2016 PRIMARY CARE PROVIDER: Kaitlyn Juarez NP and Dr. Rustam Pickett ATTENDING PHYSICIAN: Dr. Sg Silveira HISTORY OF PRESENT ILLNESS: 76-year-old female who presented to the emergency room with sudden onset of acute confusional state that lasted from approximately 5:00 p.m. to 1:00 a.m. the night prior to her arrival. The episode started at dinnertime. The patient did not feel hungry and throughout the evening became further acutely confused with no obvious weakness, paresthesias, visual change. Daughter admitted to the patient being unbalanced when walking but never had any falls. The patient had a previous admission from 11/23/2016 to 11/27/2016 for a similar episode, however, was found to have urinary tract infection and her confusion was related to metabolic encephalopathy. HOSPITALIZATION COURSE: The patient has had no confusion since her admission. Initially failed physical therapy her first day; however, during her session did very well and was able to ambulate 40 feet safely with the assistance of a walker, which is what the patient normally uses at home and this is her normal ambulation at home as well. The patient is status post electroencephalogram (EEG), which proves nonspecific diffuse cerebral dysfunction, such as seen in encephalopathy. IMAGING: Includes chest x-ray, head CT and carotid ultrasound, all of which were negative. Urine was tested for infection and her urine culture did prove negative, blood cultures were negative. The patient received significant IV fluid resuscitation secondary to acute kidney injury. Initial creatinine was 3.71, she is now down to 3.00 today with assistance of IV fluids. The patient did have an initial lactic acid elevation of 2.5; however, that resolved with a followup value of 1.6 after fluid resuscitation. The patient's blood sugar did remain stable throughout the hospitalization. Urine toxicology proved negative. The patient's ABG proved negative for any metabolic abnormalities. PHYSICAL EXAMINATION: On physical examination today, the patient is resting comfortably in bed after a physical therapy session. is at the bedside. HEENT: Neck is supple without lymphadenopathy or jugular venous distention (JVD). CARDIOVASCULAR: Heart rate and rhythm are regular. PULMONARY: Lungs are clear. ASSESSMENT: 1. Metabolic encephalopathy. 2. Acute kidney injury. SECONDARY DIAGNOSES: 1. Chronic kidney disease stage IV. 2. Atrial fibrillation, chronically on Xarelto. 3. Congestive heart failure (CHF). 4. Gastroesophageal reflux disease (GERD). 5. Lumbar spondylosis. 6. Tachybrady syndrome with dual chamber pacemaker. 7. Hyperlipidemia. 8. Gout. 9. Hypertension. 10. Hypertensive heart disease. PLAN: The patient will be discharged home. Diet is 2-gram sodium. Activity is to ambulate with a walker. The patient is unable to have any home health services as [place] [facility] and they are unable to access the patient in her home. MEDICATIONS: As follows: - vitamin B12 1000 mcg one by mouth daily, this is a new medication as the patient was found to have macrocytic anemia along with a low B12 level Continued medications include: - allopurinol 300 mg one by mouth daily - amiodarone 200 mg by mouth daily - atorvastatin 20 mg by mouth daily - calcitriol 0.25 mg daily - diphenhydramine 25 mg by mouth at night - famotidine 40 mg by mouth daily - gabapentin 300 mg by mouth three times a day - metoprolol 25 mg by mouth twice a day - Zofran 4 mg by mouth every 8 hours as needed for nausea and vomiting - potassium chloride 10 mEq by mouth daily - Xarelto 15 mg by mouth at night - torsemide 20 mg daily - tramadol 50 mg by mouth every 8 hours as needed for pain The patient does have significant ecchymosis noted from IV placement, lab draws and blood pressures. Primary care provider may want to discuss changing Xarelto dosing given her recent episodes of encephalopathy and significant ecchymotic areas. She will followup with primary care provider within the next 5 to 7 days. The patient plans on attending [place] the first week of December and was highly encouraged to followup with her providers there. Most of her medical care is provided, along with her specialty care in [place]. The patient is discharged in stable and satisfactory condition. There were no further questions at the time of discharge. [place]
[2016-12-13 00:06] LABS: FREE KAPPA LIGHT CHAINS SERUM 88.3 mg/L (3.3-19.4); FREE LAMBDA LIGHT CHAINS SERUM 70.2 mg/L (5.7-26.3); KAPPA/LAMBDA RATIO SERUM 1.26 (0.26-1.65)
[2016-12-13 12:46] LABS: PRETREATED FOLATE FOR RBCFOL 18.5 NG/ML
== END 2016-12-12 14:24 | disposition home or self-care (01) | DRG 682 ==
LOC: M ED 08:55 → M ED INP 16:15 → M MSPAV 19:02
PROVIDERS: ADMIT Family Medicine; ATTEND Family Medicine
DX: N17.9 Acute kidney failure, unspecified (principal); G93.41 Metabolic encephalopathy; I50.32 Chronic diastolic (congestive) heart failure; I13.0 Hypertensive heart and chronic kidney disease with heart failure and stage 1 through stage 4 chronic kidney disease, or unspecified chronic kidney disease; E87.0 Hyperosmolality and hypernatremia; I48.2 Chronic atrial fibrillation; N18.4 Chronic kidney disease, stage 4 (severe); E86.0 Dehydration; K21.9 Gastro-esophageal reflux disease without esophagitis; M47.26 Other spondylosis with radiculopathy, lumbar region; Z95.0 Presence of cardiac pacemaker; E78.5 Hyperlipidemia, unspecified; M10.9 Gout, unspecified; Z79.01 Long term (current) use of anticoagulants; Z79.899 Other long term (current) drug therapy

== ENCOUNTER 2017-10-12 08:54 | Emergency (ER) | payer MEDICARE, BC ==
[2017-10-12 09:59] LABS: BASO # 0.1 10^3/uL (0.0-0.2); EOS # 0.3 10^3/uL (0.0-0.50); EOS % 3.3 % (0.0-3.0); HEMATOCRIT 42.1 % (36.0-47.0); HEMOGLOBIN 13.3 g/dl (12.0-15.5); IMMATURE GRANULOCYTE % 0.2 % (0-3.0); LYMPH # 2.8 10^3/uL (1.5-4.5); LYMPH % 31.4 % (24.0-44.0); MEAN CORPUSCULAR HEMOGLOBIN 31.5 pg (27.0-33.0); MEAN CORPUSCULAR HGB CONC 31.6 g/dl (32.0-36.5); MEAN CORPUSCULAR VOLUME 99.8 fl (80.0-96.0); MONO # 1.1 10^3/uL (0.0-0.8); MONO % 11.9 % (0.0-5.0); NEUTROPHILS # 4.6 10^3/uL (1.8-7.7); NEUTROPHILS % 52.2 % (36.0-66.0); PLATELET COUNT, AUTOMATED 178 10^3/uL (150-450); RED BLOOD COUNT 4.22 10^6/uL (4.00-5.40); RED CELL DISTRIBUTION WIDTH 15.9 % (11.5-14.5); WHITE BLOOD COUNT 8.9 10^3/uL (4.0-10.0)
[2017-10-12] MEDS: NS 500 ML IV (10:00)
[2017-10-12 10:18] LABS: PROTHROMBIN TIME 13.3 SECONDS (12.1-14.4)
[2017-10-12 10:25] LABS: ALBUMIN 3.4 GM/DL (3.2-5.2); ALKALINE PHOSPHATASE 228 U/L (45-117); ALT/SGPT 35 U/L (12-78); ANION GAP 15 MEQ/L (8-16); AST/SGOT 49 U/L (7-37); BILIRUBIN,TOTAL 1.2 MG/DL (0.2-1.0); BLOOD UREA NITROGEN 45 MG/DL (7-18); CALCIUM LEVEL 8.5 MG/DL (8.8-10.2); CARBON DIOXIDE LEVEL 23 MEQ/L (21-32); CHLORIDE LEVEL 104 MEQ/L (98-107); CPK CREATINE PHOSPHOKINASE 60 U/L (26-192); CREATININE FOR GFR 6.12 MG/DL (0.55-1.30); GLOMERULAR FILTRATION RATE 7.1 (>39); GLUCOSE, FASTING 96 MG/DL (70-100); POTASSIUM SERUM 4.5 MEQ/L (3.5-5.1); SODIUM LEVEL 142 MEQ/L (136-145); TOTAL PROTEIN 6.8 GM/DL (6.4-8.2); TROPONIN I 0.02 NG/ML (< 0.10)
[2017-10-12 10:26] LABS: CK-MB VALUE MASS 2.6 NG/ML (<3.6); MB/CK RELATIVE INDEX 4.33 (< OR =4)
[2017-10-12 10:56] LABS: PARTIAL THROMBOPLASTIN TIME 32.7 SECONDS (25.4-37.6)
[2017-10-12 11:08] LABS: FREE T4 1.55 NG/DL (0.76-1.46)
[2017-10-12 11:08] LABS: MAGNESIUM LEVEL 2.3 MG/DL (1.8-2.4)
[2017-10-12 14:01] LABS: AMORPHOUS SEDIMENT RFX SMALL (NEGATIVE); KETONE, URINE AUTO RFX NEGATIVE (NEGATIVE); MUCUS, URINE RFX SMALL (NEGATIVE); NITRITE, URINE AUTO RFX NEGATIVE (NEGATIVE); RBC, URINE AUTO RFX 0 /HPF (0-3); SPECIFIC GRAVITY UR AUTO RFX 1.011 (1.002-1.035); SQUAM EPITHELIAL CELL UR AURFX 9 /HPF (0-6); WBC, URINE AUTO RFX 7 /HPF (0-3)
[2017-10-12 14:22] LABS: LEUKOCYTE ESTERASE UR AUTO RFX TRACE (NEGATIVE)
== END 2017-10-12 16:06 | disposition home or self-care (01) ==
LOC: M ED 08:54
DX: R53.1 Weakness (principal); I48.91 Unspecified atrial fibrillation; R94.31 Abnormal electrocardiogram [ECG] [EKG]; N18.6 End stage renal disease; Z99.2 Dependence on renal dialysis; Z98.84 Bariatric surgery status; Z95.0 Presence of cardiac pacemaker; Z87.891 Personal history of nicotine dependence; Z79.899 Other long term (current) drug therapy; Z88.5 Allergy status to narcotic agent
CPT/HCPCS: 71045